=== PATIENT | female | born 1955 | race Caucasian/White ===

== ENCOUNTER → 2023-03-13 08:07 | Outpatient (BNVA) | payer MEDICARE, SELFPAY | PROVIDERS: Referring Provider Nurse Practitioner Family; Visit Provider Specialist | DX: G25.0 Essential tremor (principal); R26.89 Other abnormalities of gait and mobility; E11.9 Type 2 diabetes mellitus without complications; Z79.4 Long term (current) use of insulin | CPT/HCPCS: 99203 ==

== ENCOUNTER → 2023-10-11 09:05 | Outpatient (BNVA) | payer MEDICARE, SELFPAY | PROVIDERS: Visit Provider Podiatrist Foot & Ankle Surgery | DX: L60.3 Nail dystrophy (principal); G62.9 Polyneuropathy, unspecified; L60.0 Ingrowing nail; E11.42 Type 2 diabetes mellitus with diabetic polyneuropathy; Z79.4 Long term (current) use of insulin | CPT/HCPCS: 11721; 99203 ==

== ENCOUNTER → 2023-12-13 11:39 | Outpatient (BNVA) | payer MEDICARE, SELFPAY | PROVIDERS: Visit Provider Podiatrist Foot & Ankle Surgery | DX: L60.3 Nail dystrophy (principal); G62.9 Polyneuropathy, unspecified; L60.0 Ingrowing nail; E11.42 Type 2 diabetes mellitus with diabetic polyneuropathy; Z79.4 Long term (current) use of insulin | CPT/HCPCS: 11721 ==

== ENCOUNTER → 2024-02-27 14:00 | Outpatient (BNVA) | payer MEDICARE, SELFPAY | PROVIDERS: Visit Provider Specialist | DX: G25.0 Essential tremor; R26.9 Unspecified abnormalities of gait and mobility; R03.0 Elevated blood-pressure reading, without diagnosis of hypertension | CPT/HCPCS: 99214 ==

== ENCOUNTER 2024-04-26 06:00 | Outpatient (CLI) | payer MEDICARE, SELFPAY ==
--- NOTE | 2024-04-26 | XR_ITS ---
WS: [id number] XR wrist RT min 3V* [id number] REASON FOR EXAM: PAIN OF RIGHT WRIST FINDINGS: Nondisplaced oblique fracture through the base of the radial styloid. Joint spaces of the wrist are intact and relatively well preserved. No soft tissue abnormality. XR/XR wrist RT min 3V* [id number] IMPRESSION: Fracture distal radius as above.
== END 2024-04-26 06:01 | disposition home or self-care (01) ==
LOC: RADOUTREAD 05-05 06:27
PROVIDERS: PCP Nurse Practitioner Family; Visit Provider Nurse Practitioner Family
DX: M25.531 Pain in right wrist (principal)

== ENCOUNTER → 2025-02-24 13:44 | Outpatient (BNVA) | payer MEDICARE, SELFPAY | PROVIDERS: PCP Nurse Practitioner Family; Visit Provider Specialist | DX: G25.0 Essential tremor (principal); R26.9 Unspecified abnormalities of gait and mobility; R03.0 Elevated blood-pressure reading, without diagnosis of hypertension; E11.9 Type 2 diabetes mellitus without complications | CPT/HCPCS: 99213 ==

== ENCOUNTER → 2025-03-05 11:55 | Outpatient (BNVA) | payer MEDICARE, SELFPAY | PROVIDERS: PCP Nurse Practitioner Family; Referring Provider Specialist; Visit Provider Internal Medicine | DX: E11.9 Type 2 diabetes mellitus without complications (principal); E78.2 Mixed hyperlipidemia; Z79.4 Long term (current) use of insulin | CPT/HCPCS: 99204 ==

== ENCOUNTER 2025-04-16 11:21 | Outpatient (CLI) | payer MEDICARE, SELFPAY ==
--- NOTE | 2025-04-16 11:20 | MM_ITS ---
WS: [id number] BILATERAL SCREENING DIGITAL TOMOSYNTHESIS MAMMOGRAM WITH CAD HISTORY: SCREENING COMPARISON: 03/11/2024, 06/25/2007 Bilateral CC and MLO views with tomosynthesis and synthetic mammography submitted. Computer aided detection analyzed. Breast composition: There are scattered areas of fibroglandular density. No suspicious masses, microcalcifications or architectural distortion. Rodlike calcifications in each breast have slowly progressed over time. Benign calcifications. MM/MM scr tomosynthesis [id number] IMPRESSION: BI-RADS: 2 - Benign. FOLLOW UP: 1 Year Follow-up
== END 2025-04-16 11:22 | disposition home or self-care (01) ==
LOC: MOBLMAM 11:24
PROVIDERS: PCP Internal Medicine; Visit Provider Internal Medicine
DX: Z12.31 Encounter for screening mammogram for malignant neoplasm of breast (principal); R92.323 Mammographic fibroglandular density, bilateral breasts; R92.1 Mammographic calcification found on diagnostic imaging of breast
CPT/HCPCS: 77063; 77067

== ENCOUNTER 2025-04-16 21:56 | Emergency (ER) | payer MEDICARE, SELFPAY ==
--- OUTSIDE RECORDS SUMMARY | 2025-04-02 08:45 | XMS_ITS ---
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 Name Role Phone Aburto, [facility] Primary Care Provider Juan Robbins Allergies Allergen (clinical drug ingredient) Drug/Non Drug Allergy documented on EMR Reaction Allergy Type Onset Date Status olmesartan Benicar cough Drug Allergy Active citalopram CeleXA Unknown Drug Allergy Active loratadine Loratadine sleep paralysis Drug Allergy Active tetracycline Tetracycline HCl rash Drug Allergy Active insulin isophane NovoLIN N FlexPen rash Drug Allergy Active glipizide Glipizide Unknown Drug Allergy Active metoprolol Metoprolol Unknown Drug Allergy Activ e trazodone Trazodone Unknown Drug Allergy Active REASON FOR VISIT ccm Medications Medication SIG (Take, Route, Frequency, Duration) Notes Start Date End Date Status Lidocaine 5 % Patch 1 patch remove after 12 hours Externally Once a day; Duration: 30 days 09/10/2024 Not-Taking Ventolin HFA 108 (90 Base) MCG/ACT Aerosol Solution 2 puff as needed Inhalation every 4 hrs; Duration: 30 days Not-Taking Pseudoephedrine HCl ER 120 MG Tablet Extended Release 12 Hour 1 tablet as needed Orally every 12 hrs; Duration: 10 days 09/23/2024 Not-Taking Fluticasone-Salmeterol 500-50 MCG/ACT Aerosol Powder Breath Activated 1 puff Inhalation Twice a day; Duration: 30 days 09/23/2024 Not-Taking Oxymetazoline HCl 0.05 % Solution 4 sprays (2 sprays in each nostril) Nasally Twice a day Not-Taking Triamcinolone Acetonide 0.1 % Cream 1 application Externally Two times a Week Not-Taking Gas Relief 80 MG Tablet Chewable 1 tablet after meals and at bedtime as needed Orally Four times a day Not-Taking Stool Softener 100 MG Tablet 1 tablet as needed Orally Once a day Not-Taking Ibuprofen 800 MG Tablet 1 tab Orally Thr ee times a day prn inflammatory pain; Duration: 30 days Not-Taking Hair Skin & Nails - Tablet as directed Orally Not-Takin g Lantus SoloStar 100 UNIT/ML Solution Pen-injector inject 20 units UNDER THE SKIN TWICE DAILY; Duration: 30 Not-Taking metFORMIN HCl ER 750 mg Tablet Extended Release 24 Hour TAKE ONE TABLET BY MOUTH EVERY EVENING with a meal; Duration: 30 Not-Taking prednisoLONE Acetate 1 % Suspension 1 drop into affected eye Ophthalmic Twice a day Not-Taking Ketorolac Tromethamine 0.5 % Solution 1 drop into affected eye as needed Ophthalmic Four times a day Not-Taking Atorvastatin Calcium 20 mg Tablet TAKE ONE TABLET BY MOUTH EVERY DAY; Duration: 90 Not-Taking GNP Nasal Decongestant 120 mg Tablet Extended Release 12 Hour TAKE ONE TABLET BY MOUTH EVERY TWELVE HOURS NEEDED FOR 10 DAYS; Duration: 10 Not-Taking One A Day Women 50 Plus - Tablet as directed Orally Active Acetaminophen 500 MG Tablet 1 tablet as needed Orally every 6 hrs Active Chlorzoxazone 500 mg Tablet TAKE ONE TABLET BY MOUTH THREE TIMES DAILY NEEDED FOR moderate SPASMS FOR 30 DAYS; Duration: 30 Active Fexofenadine HCl 180 MG Tablet 1 tablet Swallow whole with water; do not take with fruit juices. Orally Once a day Active FreeStyle Joni 14 Day [place] - Device as directed; Duration: 30 days 04/16/2024 Active Alkalol - Solution as directed Nasally Active Magnesium 200 MG Tablet 2 tablets with a meal Orally Once a day Active Cyanocobalamin 500 MCG Lozenge 1 lozenge Orally Once a day Active Cholecalciferol 50 MCG (2000 UT) Capsule 1 capsule Orally Once a day Active Fluticasone Propionate 50 MCG/ACT Suspension instill TWO SPRAY IN EACH NOSTRIL TWICE DAILY; Duration: 30 Active True Metrix Blood Glucose Test - Strip USE ONE strip TO test blood sugar TWICE DAILY; Duration: 90 Active Nystop 218523 UNIT/GM Powder APPLY topically TWICE DAILY; Duration: 30 Active Azelastine HCl - Powder as directed Active Diclofenac Sodium 1 % Gel as directed Externally Four times a day; Duration: 30 days Active FreeStyle Joni 14 Day Sensor - Miscellaneous as directed; Duration: 30 days Active Brimonidine Tartrate-Timolol 0.2-0.5 % Solution Ophthalmic; Duration: 30 Days Active Pantoprazole Sodium 40 mg Tablet Delayed Release TAKE ONE TABLET BY MOUTH EVERY DAY; Duration: 90 Active Primidone 50 MG Tablet 2 tabs Oral Once a day; Duration: 30 days Active TRUEplus Lancets 30G - Miscellaneous USE DIRECTED FOUR TIMES DAILY NEEDED; Duration: 30 Active Vilazodone HCl 40 mg Tablet TAKE ONE TABLET BY MOUTH ONCE DAILY with food; Duration: 30 Active Advocate Insulin Pen [place] 31G X 5 MM Miscellaneous USE with lantus DIRECTED; Duration: 50 Active Montelukast Sodium 10 mg Tablet TAKE ONE TABLET BY MOUTH EVERY DAY; Duration: 90 Active Losartan Potassium 100 mg Tablet TAKE ONE TABLET BY MOUTH EVERY MORNING; Duration: 30 Active Mounjaro 15 MG/0.5ML Solution Auto-injector INJECT 15 MG UNDER THE SKIN ONCE WEEKLY FOR diabetes; Duration: 30 Active Celecoxib 200 MG Capsule 1 cap Orally On ce a day pc; Duration: 30 days 01/06/2025 07/04/2025 Active busPIRone HCl 10 mg Tablet TAKE one half TO one TABLET BY MOUTH TWICE DAILY NEEDED FOR moderate ANXIETY; Duration: 30 days Active Budesonide (Nasal) A ctive Insulin Glargine-yfgn 100 UNIT/ML Solution Pen-injector inject 20 units UNDER THE SKIN TWICE DAILY Subcutaneous; Duration: 37 Days Active amLODIPine Besylate 5 MG Tablet 1 tablet Orally Once a day in evening; Duration: 30 days 01/01/2025 Not-Taking Cyclobenzaprine HCl 10 mg Tablet TAKE 1 TABLET BY MOUTH THREE TIMES DAILY NEEDED FOR muscle spasm; Duration: 30 Active Pepcid 40 MG Tablet 1 tablet Orally Once a day; Duration: 30 days 02/16/2025 Active traMADol HCl 50 mg Tablet TAKE 1 TABLET BY MOUTH EVERY 4 hours NEEDED FOR SEVERE pain FOR 30 days; Duration: 30 03/09/2025 Active Social History Tobacco Use: Social History Observation Description Date Details (start date - stop date) Never Smoker NA - NA Social History Tobacco Use: Social Info Question Answer Notes Tobacco Control (Standard) Tobacco use: Nonsmoker Section Notes: Depression screen completed 05/14/2024 Tob - 05/14/24 Encounters Encounter Location Date Provider Diagnosis [facility] 04/02/2025 Juan oRbbins Hypertension I10 and Anxiety F41.9 Assessments Encounter Date Diagnosis (ICD Code) Assessment Notes Treatment Notes Treatment Clinical Notes Section Notes 04/02/2025 Hypertension (ICD-10 - I10) 04/02/2025 Anxiety (ICD-10 - F41.9) Plan Of Treatment Next Appt Details Provider Name:Mary Alice Aburto, 05/21/2025 01:00:00 PM, [address], [facility], [place], [phone], Progress Notes * Laverne AMBROSE KDOB: (69 yo F)Acc No.[id number]:04/02/2025 Patient: Laverne RIVERA :1955 A ge:69 Y S ex:Female Address:[address] [place] [id number] Subjective: * Chief Complaints: * C cm * ROS: G eneral - Multi System: Cardiovascular R EPORTS, swelling in lower extremities. * Medical History: Used insulin since 2011 type II diabetes Chicken Pox Measles Alopecia Anemia Anxiety Depression Chronic sinusitis Back Trouble GERD High Blood Pressure Alopecia totalis * Surgical History: tubal ligation 1989 cholecystectomy 2017 fractured wrist repair left 2003 fractured left wrist repair 2005 sinus 2000 * Hospitalization/Major Diagno stic Procedure: bells palsy 2018 see surgery hx * Family History: F ather: 85 yrs, type II diabetes, hypertension. M other: alive 86 yrs, sinus.? * Social History: T obacco Use: T obacco Control (Standard) T obacco use: N onsmoker D epression screen completed 05/14/2024 Tob - 05/14/24. * Medications: T akingtraMADol HCl 50 mg Tablet TAKE 1 TABLET BY MOUTH EVERY 4 hours NEEDED FOR SEVERE pain FOR 30 days Cyclobenzaprine HCl 10 mg Tablet TAKE 1 TABLET BY MOUTH THREE TIMES DAILY NEEDED FOR muscle spasm Pepcid 40 MG Tablet 1 tablet Orally Once a day Celecoxib 200 MG Capsule 1 cap Orally Once a day pc , stop date 5busPIRone HCl 10 mg Tablet TAKE one half TO one TABLET BY MOUTH TWICE DAILY NEEDED FOR moderate ANXIETY Budesonide (Nasal) Insulin Glargine-yfgn 100 UNIT/ML Solution Pen-injector inject 20 units UNDER THE SKIN TWICE DAILY Subcutaneous Advocate Insulin Pen [place] 31G X 5 MM Miscellaneous USE with lantus DIRECTED Montelukast Sodium 10 mg Tablet TAKE ONE TABLET BY MOUTH EVERY DAY Losartan Potassium 100 mg Tablet TAKE ONE TABLET BY MOUTH EVERY MORNING Mounjaro 15 MG/0.5ML Solution Auto-injector INJECT 15 MG UNDER THE SKIN ONCE WEEKLY FOR diabetes Vilazodone HCl 40 mg Tablet TAKE ONE TABLET BY MOUTH ONCE DAILY with food FreeStyle Joni 14 Day Sensor - Miscellaneous as directed Brimonidine Tartrate-Timolol 0.2-0.5 % Solution Ophthalmic Pantoprazole Sodium 40 mg Tablet Delayed Release TAKE ONE TABLET BY MOUTH EVERY DAY Primidone 50 MG Tablet 2 tabs Oral Once a day TRUEplus Lancets 30G - Miscellaneous USE DIRECTED FOUR TIMES DAILY NEEDED True Metrix Blood Glucose Test - Strip USE ONE strip TO test blood sugar TWICE DAILY Nystop 438482 UNIT/GM Powder APPLY topically TWICE DAILY Azelastine HCl - Powder as directed Diclofenac Sodium 1 % Gel as directed Externally Four times a day Fluticasone Propionate 50 MCG/ACT Suspension instill TWO SPRAY IN EACH NOSTRIL TWICE DAILY FreeStyle Joni 14 Day [place] - Device as directed Alkalol - Solution as directed Nasally Magnesium 200 MG Tablet 2 tablets with a meal Orally Once a day Cyanocobalamin 500 MCG Lozenge 1 lozenge Orally Once a day Cholecalciferol 50 MCG (2000 UT) Capsule 1 capsule Orally Once a day One A Day Women 50 Plus - Tablet as directed Orally Acetaminophen 500 MG Tablet 1 tablet as needed Orally every 6 hrs Chlorzoxazone 500 mg Tablet TAKE ONE TABLET BY MOUTH THREE TIMES DAILY NEEDED FOR moderate SPASMS FOR 30 DAYS Fexofenadine HCl 180 MG Tablet 1 tablet Swallow whole with water; do not take with fruit juices. Orally Once a day Taking traMADol HCl 50 mg Tablet TAKE 1 TABLET BY MOUTH EVERY 4 hours NEEDED FOR SEVERE pain FOR 30 days Taking Cyclobenzaprine HCl 10 mg Tablet TAKE 1 TABLET BY MOUTH THREE TIMES DAILY NEEDED FOR muscle spasm Taking Pepcid 40 MG Tablet 1 tablet Orally Once a day Taking Celecoxib 200 MG Capsule 1 cap Orally Once a day pc , stop date 11/08/2025Taking busPIRone HCl 10 mg Tablet TAKE one half TO one TABLET BY MOUTH TWICE DAILY NEEDED FOR moderate ANXIETY Taking Budesonide (Nasal) Taking Insulin Glargine-yfgn 100 UNIT/ML Solution Pen-injector inject 20 units UNDER THE SKIN TWICE DAILY Subcutaneous Taking Advocate Insulin Pen [place] 31G X 5 MM Miscellaneous USE with lantus DIRECTED Taking Montelukast Sodium 10 mg Tablet TAKE ONE TABLET BY MOUTH EVERY DAY Taking Losartan Potassium 100 mg Tablet TAKE ONE TABLET BY MOUTH EVERY MORNING Taking Mounjaro 15 MG/0.5ML Solution Auto-injector INJECT 15 MG UNDER THE SKIN ONCE WEEKLY FOR diabetes Taking Vilazodone HCl 40 mg Tablet TAKE ONE TABLET BY MOUTH ONCE DAILY with food Taking FreeStyle Joni 14 Day Sensor - Miscellaneous as directed Taking Brimonidine Tartrate-Timolol 0.2-0.5 % Solution Ophthalmic Taking Pantoprazole Sodium 40 mg Tablet Delayed Release TAKE ONE TABLET BY MOUTH EVERY DAY Taking Primidone 50 MG Tablet 2 tabs Oral Once a day Taking TRUEplus Lancets 30G - Miscellaneous USE DIRECTED FOUR TIMES DAILY NEEDED Taking True Metrix Blood Glucose Test - Strip USE ONE strip TO test blood sugar TWICE DAILY Taking Nystop 284756 UNIT/GM Powder APPLY topically TWICE DAILY Taking Azelastine HCl - Powder as directed Taking Diclofenac Sodium 1 % Gel as directed Externally Four times a day Taking Fluticasone Propionate 50 MCG/ACT Suspension instill TWO SPRAY IN EACH NOSTRIL TWICE DAILY Taking FreeStyle Joni 14 Day [place] - Device as directed Taking Alkalol - Solution as directed Nasally Taking Magnesium 200 MG Tablet 2 tablets with a meal Orally Once a day Taking Cyanocobalamin 500 MCG Lozenge 1 lozenge Orally Once a day Taking Cholecalciferol 50 MCG (2000 UT) Capsule 1 capsule Orally Once a day Taking One A Day Women 50 Plus - Tablet as directed Orally Taking Acetaminophen 500 MG Tablet 1 tablet as needed Orally every 6 hrs Taking Chlorzoxazone 500 mg Tablet TAKE ONE TABLET BY MOUTH THREE TIMES DAILY NEEDED FOR moderate SPASMS FOR 30 DAYS Taking Fexofenadine HCl 180 MG Tablet 1 tablet Swallow whole with water; do not take with fruit juices. Orally Once a day Not-TakingamLODIPine Besylate 5 MG Tablet 1 tablet Orally Once a day in evening GNP Nasal Decongestant 120 mg Tablet Extended Release 12 Hour TAKE ONE TABLET BY MOUTH EVERY TWELVE HOURS NEEDED FOR 10 DAYS Lantus SoloStar 100 UNIT/ML Solution Pen-injector inject 20 units UNDER THE SKIN TWICE DAILY metFORMIN HCl ER 750 mg Tablet Extended Release 24 Hour TAKE ONE TABLET BY MOUTH EVERY EVENING with a meal prednisoLONE Acetate 1 % Suspension 1 drop into affected eye Ophthalmic Twice a day Ketorolac Tromethamine 0.5 % Solution 1 drop into affected eye as needed Ophthalmic Four times a day Atorvastatin Calcium 20 mg Tablet TAKE ONE TABLET BY MOUTH EVERY DAY Ibuprofen 800 MG Tablet 1 tab Orally Three times a day prn inflammatory pain Hair Skin & Nails - Tablet as directed Orally Triamcinolone Acetonide 0.1 % Cream 1 application Externally Two times a Week Gas Relief 80 MG Tablet Chewable 1 tablet after meals and at bedtime as needed Orally Four times a day Stool Softener 100 MG Tablet 1 tablet as needed Orally Once a day Lidocaine 5 % Patch 1 patch remove after 12 hours Externally Once a day Ventolin HFA 108 (90 Base) MCG/ACT Aerosol Solution 2 puff as needed Inhalation every 4 hrs Pseudoephedrine HCl ER 120 MG Tablet Extended Release 12 Hour 1 tablet as needed Orally every 12 hrs Fluticasone-Salmeterol 500-50 MCG/ACT Aerosol Powder Breath Activated 1 puff Inhalation Twice a day Oxymetazoline HCl 0.05 % Solution 4 sprays (2 sprays in each nostril) Nasally Twice a day Not-Taking amLODIPine Besylate 5 MG Tablet 1 tablet Orally Once a day in evening Not-Taking GNP Nasal Decongestant 120 mg Tablet Extended Release 12 Hour TAKE ONE TABLET BY MOUTH EVERY TWELVE HOURS NEEDED FOR 10 DAYS Not-Taking Lantus SoloStar 100 UNIT/ML Solution Pen-injector inject 20 units UNDER THE SKIN TWICE DAILY Not-Taking metFORMIN HCl ER 750 mg Tablet Extended Release 24 Hour TAKE ONE TABLET BY MOUTH EVERY EVENING with a meal Not-Taking prednisoLONE Acetate 1 % Suspension 1 drop into affected eye Ophthalmic Twice a day Not-Taking Ketorolac Tromethamine 0.5 % Solution 1 drop into affected eye as needed Ophthalmic Four times a day Not- Taking Atorvastatin Calcium 20 mg Tablet TAKE ONE TABLET BY MOUTH EVERY DAY Not-Taking Ibuprofen 800 MG Tablet 1 tab Orally Three times a day prn inflammatory pain Not-Taking Hair Skin & Nails - Tablet as directed Orally Not-Taking Triamcinolone Acetonide 0.1 % Cream 1 application Externally Two times a Week Not-Taking Gas Relief 80 MG Tablet Chewable 1 tablet after meals and at bedtime as needed Orally Four times a day Not-Taking Stool Softener 100 MG Tablet 1 tablet as needed Orally Once a day Not-Taking Lidocaine 5 % Patch 1 patch remove after 12 hours Externally Once a day Not-Taking Ventolin HFA 108 (90 Base) MCG/ACT Aerosol Solution 2 puff as needed Inhalation every 4 hrs Not-Taking Pseudoephedrine HCl ER 120 MG Tablet Extended Release 12 Hour 1 tablet as needed Orally every 12 hrs Not-Taking Fluticasone-Salmeterol 500-50 MCG/ACT Aerosol Powder Breath Activated 1 puff Inhalation Twice a day Not-Taking Oxymetazoline HCl 0.05 % Solution 4 sprays (2 sprays in each nostril) Nasally Twice a day * Allergies: N ovoLIN N FlexPen: rash - AllergyTetracycline HCl: rash - AllergyLoratadine: sleep paralysis - AllergyTrazodoneBenicar: coughMetoprololCeleXAGlipizide Assessment: * Assessment: 1. H ypertension - I10 (Primary) 2 . A nxiety - F41.9 * * Date:
--- OUTSIDE RECORDS SUMMARY | 2025-04-09 11:00 | XMS_ITS ---
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 Phone Aburto, [facility] Primary Care Provider [phone] Allergies Allergen (clinical drug ingredient) Drug/Non Drug [...] e trazodone Trazodone Unknown Drug Allergy Active Results Component Value Reference Range Notes UA Without Micro-Auto, [place] - [id number] Reviewed date:04/10/2025 04:22:20 PM Interpretation: Performing Lab: Notes/Report: Color straw Clarity cloudy Glucose neg Bili 1+ Ketones neg Sp [place] Path 1.020 Blood neg pH 6.0 Protein neg Urobili 0.2 Nitrites positive Leukocytes +15 Reason For Referral Reason depression Diagnosis 1 Other depression (F3 2.89) Referral Organization [facility] [place] [facility] Referring Provider First Name Mary Alice Referring Provider Last Name Aburto Referring Provider Speciality Nurse Jannie whiting Referred Provider [facility] Referred Provider Specialty [facility] Referral Priority Routine REASON FOR VISIT Patient to clinic for 3 mo f/u Medications Medication SIG (Take, Route, Frequency, Duration) Notes Start Date End Date Status Lidocaine 5 % Patch 1 patch remove after 12 hours Externally Once a day; Duration: 30 days 09/10/2024 Not-Taking Oxymetazoline HCl 0.05 % Solution 4 sprays (2 sprays in each nostril) Nasally Twice a day Not-Taking Fluticasone-Salmeterol 500-50 MCG/ACT Aerosol Powder Breath Activated 1 puff Inhalation Twice a day; Duration: 30 days 09/23/2024 Not-Taking Pseudoephedrine HCl ER 120 MG Tablet Extended Release 12 Hour 1 tablet as needed Orally every 12 hrs; Duration: 10 days 09/23/2024 Not-Taking Ventolin HFA 108 (90 Base) MCG/ACT Aerosol Solution 2 puff as needed Inhalation every 4 hrs; Duration: 30 days Not-Taking Stool Softener 100 MG Tablet 1 tablet as needed Orally Once a day Not-Taking Gas Relief 80 MG Tablet Chewable 1 tablet after meals and at bedtime as needed Orally Four times a day Not-Taking Triamcinolone Acetonide 0.1 % Cream 1 application Externally Two times a Week Not-Taking Hair Skin & Nails - Tablet as directed Orally Not-Taking Ibuprofen 800 MG Tablet 1 tab Orally Thr ee times a day prn inflammatory pain; Duration: 30 days Not-Taking Atorvastatin Calcium 20 mg Tablet TAKE ONE TABLET BY MOUTH EVERY DAY; Duration: 90 Not-Taking Ketorolac Tromethamine 0.5 % Solution 1 drop into affected eye as needed Ophthalmic Four times a day Not-Taking prednisoLONE Acetate 1 % Suspension 1 drop into affected eye Ophthalmic Twice a day Not-Taking metFORMIN HCl ER 750 mg Tablet Extended Release 24 Hour TAKE ONE TABLET BY MOUTH EVERY EVENING with a meal; Duration: 30 Not-Taking Lantus SoloStar 100 UNIT/ML Solution Pen-injector inject 20 units UNDER THE SKIN TWICE DAILY; Duration: 30 Not-Taking GNP Nasal Decongestant 120 mg Tablet Extended Release 12 Hour TAKE ONE TABLET BY MOUTH EVERY TWELVE HOURS NEEDED FOR 10 DAYS; Duration: 10 Not-Taking amLODIPine Besylate 5 MG Tablet 1 tablet Orally Once a day in evening; Duration: 30 days 01/01/2025 Not-Taking Insulin Glargine-yfgn 100 UNIT/ML Solution Pen-injector inject 20 units UNDER THE SKIN TWICE DAILY Subcutaneous; Duration: 37 Days Active Budesonide (Nasal) A ctive FreeStyle Joni 14 Day Sensor - Miscellaneous as directed; Duration: 30 days Active hydroCHLOROthiazide 25 MG Tablet 1 tablet in the morning Orally Once a day; Duration: 30 days 04/09/2025 10/06/2025 Active Celecoxib 200 MG Capsule 1 cap Orally On ce a day pc; Duration: 30 days 01/06/2025 07/04/2025 Active Pepcid 40 MG Tablet 1 tablet Orally Once a day; Duration: 30 days 02/16/2025 Active Cyclobenzaprine HCl 10 mg Tablet TAKE 1 TABLET BY MOUTH THREE TIMES DAILY NEEDED FOR muscle spasm; Duration: 30 Active traMADol HCl 50 mg Tablet TAKE 1 TABLET BY MOUTH EVERY 4 hours NEEDED FOR SEVERE pain FOR 30 days; Duration: 30 03/09/2025 Active Acetaminophen 500 MG Tablet 1 tablet as needed Orally every 6 hrs Active One A Day Women 50 Plus - Tablet as directed Orally Active Cholecalciferol 50 MCG (2000 UT) Capsule 1 capsule Orally Once a day Active Fexofenadine HCl 180 MG Tablet 1 tablet Swallow whole with water; do not take with fruit juices. Orally Once a day Active Chlorzoxazone 500 mg Tablet TAKE ONE TAB LET BY MOUTH THREE TIMES DAILY NEEDED FOR moderate SPASMS FOR 30 DAYS; Duration: 30 Active Cyanocobalamin 500 MCG Lozenge 1 lozenge Orally Once a day Active Magnesium 200 MG Tablet 2 tablets with a meal Orally Once a day Active Alkalol - Solution as directed Nasally Active FreeStyle Joni 14 Day Skykomish - Device as directed; Duration: 30 days 04/16/2024 Active Fluticasone Propionate 50 MCG/ACT Suspension instill TWO SPRAY IN EACH NOSTRIL TWICE DAILY; Duration: 30 Active True Metrix Blood Glucose Test - Strip USE ONE strip TO test blood sugar TWICE DAILY; Duration: 90 Active TRUEplus Lancets 30G - Miscellaneous USE DIRECTED FOUR TIMES DAILY NEEDED; Duration: 30 Active Diclofenac Sodium 1 % Gel as directed Externally Four times a day; Duration: 30 days Active Azelastine HCl - Powder as directed Active Nystop 021919 UNIT/GM Powder APPLY topically TWICE DAILY; Duration: 30 Active Primidone 50 MG Tablet 2 tabs Oral Once a day; Duration: 30 days Active Pantoprazole Sodium 40 mg Tablet Delayed Release TAKE ONE TABLET BY MOUTH EVERY DAY; Duration: 90 Active Brimonidine Tartrate-Timolol 0.2-0.5 % Solution Ophthalmic; Duration: 30 Days Active Vilazodone HCl 40 mg Tablet TAKE ONE TAB LET BY MOUTH ONCE DAILY with food; Duration: 30 Active Mounjaro 15 MG/0.5ML Solution Auto-injector INJECT 15 MG UNDER THE SKIN ONCE WEEKLY FOR diabetes; Duration: 30 Active Cipro 500 MG Tablet 1 tablet Orally every 12 hrs; Duration: 5 days 04/09/2025 04/14/2025 Active busPIRone HCl 10 mg Tablet 1 1/2 tab ora lly twice a day prn anxiety; Duration: 30 days 07/08/2025 Active Losartan Potassium 100 mg Tablet TAKE ONE TABLET BY MOUTH EVERY MORNING; Duration: 30 Active Montelukast Sodium 10 mg Tablet TAKE ONE TABLET BY MOUTH EVERY DAY; Duration: 90 Active Advocate Insulin Pen [place] 31G X 5 MM Miscellaneous USE with lantus DIRECTED; Duration: 50 Active Social History Tobacco Use: Social History Observation Description Date Details (start date - stop date) Never Smoker NA - NA Social History Depression Screening Social Info Question Answer Notes depression screening findings Findings Suicidality Present PHQ-9 Little interest or p jillian in doing things Several days Feeling down, depressed, or hopeless More than h [facility] the days Trouble falling or staying a sleep, or sleeping too much More than half the days Feeling tired or having little energy Nearly cecy ry day Poor appetite or overeating Nearly every day Feeling bad about yourself, or that you are a failure, or have let yourself or your family down More than half the days Trouble concentrating on thi ngs, such as reading the newspaper or watching television More than half the days Moving or speaking so slowly that other people could have noticed. Or the opposite ? being so fidgety or restless that you have been moving around a lot more than usual Several days Thoughts that you would be b ana off , or of hurting yourself in some way Several days (Consider Suicide Assessment Risk) Total Score 17 Interpretation Moderately severe depression Tobacco Use: Social Info Question Answer Notes Tobacco Control (Standard) Tobacco use: Nonsmoker Section Notes: Depression screen completed 05/14/2024 Tob - 05/14/24, PHQ9 04/10/2025 Vital Signs Temperature 97.3 degrees Fahrenheit 04/09/20 25 Blood pressure systolic 139 mm Hg 04/09/20 25 Blood pressure diastolic 75 mm Hg 025 Heart Rate 103 /min 04/09/2025 Respiratory Rate 20 /min 04/09/2025 Height 64.5 in 04/09/2025 Weight 189 lbs 04/09/2025 BMI 31.94 kg/m2 04/09/2025 Oximetry 99 % 04/09/2025 Height-cm 163.83 cm 04/09/2025 Weight-kg 85.73 kg 04/09/2025 Encounters Encounter Location Date Provider Diagnosis [facility] [address] [id number] 04/09/2025 [facility] Aburto Essential (primary) hypertension I10 ; Type 2 diabetes mellitus with diabetic neuropathic arthropathy E11.610 ; Other depression F32.89 ; Anxiety F41.9 ; 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 Z79.4 ; Thyroid disorder screen Z13.29 ; Dysuria R30.0 and Cystitis N30.90 Assessments Encounter Date Diagnosis (ICD Code) Assessment Notes Treatment Notes Treatment Clinical Notes Section Notes 04/09/2025 Essential (primary) hypertension (ICD-10 - I10) hctz losartan cbc cmp lipids 04/09/2025 Type 2 diabetes mellitus with diabetic neuropathic arthropathy (ICD-10 - E11.610) insulin mounjaro 04/09/2025 Other depression (ICD-10 - F32.89) continue meds [facility] 04/09/2025 Anxiety (ICD-10 - F41.9) buspar 04/09/2025 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 Plan Of Treatment Medication Medication Name Sig Start Date Stop Date Notes FreeStyle Joni 14 Day Senso r - Miscellaneous as directed; Duration: 30 days hydroCHLOROthiazide 25 MG Tablet 1 table t in the morning Orally Once a day; Duration: 30 days 04/09/2025 10/06/2025 Cipro 500 MG Tablet 1 tablet Orally ever y 12 hrs; Duration: 5 days 04/09/2025 04/14/2025 busPIRone HCl 10 mg Tablet 1 1/2 tab ora lly twice a day prn anxiety; Duration: 30 days 07/08/2025 Treatment Notes Assessment Notes Essential (primary) hypertension hctz losartan cbc cmp lipids Type 2 diabetes mellitus wit h diabetic neuropathic arthropathy insulin mounjaro Other depression continue meds [facility] Anxiety buspar group home (current) use of insulin ha1c Thyroid disorder screen tsh Dysuria ua Cystitis cipro Other Questions asked and answered; discharged to home. Future Test Test Name Order Date CBC w\ Auto Diff 19174 04/09/2025 Comprehensive Metabolic Panel (CMP) 8005 3 04/09/2025 Hemoglobin A1c 04348 04/09/2025 Lipid Panel Reflex DLDL 35040, 50961 Thyroid Stimulating Hormone (TSH) 61840 04/09/2025 Referrals Referral Date Details 04/09/2025 04/09/2025, depressi on, [facility] Next Appt Details Follow Up: 4 Weeks, Reason: recheck and lab Provider Name:Mary Alice Aburto, 05/21/2025 01:00:00 PM, [address], [address], History and Physical Notes * Examination Category Sub-Category Detail Notes Category Not es General Examination GENERAL APPEARANCE: alert, w ell hydrated, in no distress, converses well HEAD: normocephalic, atrau matic EYES: PERRL; normal conjun ctiva EARS: ... NECK/THYROID: neck supple, full ra nge of motion, no JVD, without thyromegaly or masses HEART: Regular rate and rhy thm, S1 S2 normal LUNGS: clear to auscultatio n bilaterally, no wheezes, rales, or rhonchi NEUROLOGIC: alert and oriented, cerebellar function normal, cognitive exam grossly normal, gait normal SKIN: warm and dry EXTREMITIES: no clubbing, cyanosi s, or edema. 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 Subjective: * Chief Complaints: * P atient to clinic for 3 mo f/u * HPI: P rovider Note: patient is an alert 69 year old female known to practice and here for recheck and medications discussed with patient diagnoses treatments and medications pepcid for gerd/gas; continue plan take with celebrex freestyle joni 3 refill [facility] states her bp has been up some at home will add hctz q am continue losartan monitor bp complains depression; anxiety states out of buspar x 3 days was taking buspar 2 tabs twice a day; out of 3 days ok to increase to 1 1/2 tabs bid; refills continue vilazodone daily depression total score of 17 this visit discussed with patient refer to [facility] saw dr bhagat for diabetes next appt may dr bhagat; need fasting labs here did have some lows in the night insulin changed there to once a day taking insulin 20 units bid best to take only q a day discussed with patient try 28 units in evening; stop am injections as suggested by dr bhagat at her last visit continue mounjaro 15 mg glaucoma pressure 30 diabetes type 2 with [facility] insulin neuropathy sees dr christiansen for eyes; glaucoma does eye 2 different eye drops complains possible uti/dysuria ua in clinic positive nitrites; positive leuk cystitis; will e script cipro. * ROS: G eneral - Multi System: Genitourinary R EPORTSdysuria . P sychiatric R eportsdepression . 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 * OB History: T otal living children 2 . T otal pregnancies 2 . * Surgical History: tubal ligation 1989 cholecystectomy 2017 fractured wrist repair left 2003 fractured left wrist repair 2004 sinus 1999 Surgical History verified. * Hospitalization/Major Diagno stic Procedure: bells palsy 2018 see surgery hx Hospitalization Verified. * Family History: F ather: 85 yrs, type II diabetes, hypertension. M other: alive 86 yrs, sinus.?Family History Verified.. * Social History: T obacco Use: T obacco Control (Standard) T obacco use: N onsmoker D epression Screening: P HQ-9 L ittle interest or pleasure in doing things?Several days F eeling down, depressed, or hopeless M ore than half the days T rouble falling or staying asleep, or sleeping too much M ore than half the days F eeling tired or having little energy N early every day P oor appetite or overeating N early every day F eeling bad about yourself, or that you are a failure, or have let yourself or your family down M ore than half the days T rouble concentrating on things, such as reading the newspaper or watching television M ore than half the days M oving or speaking so slowly that other people could have noticed. Or the opposite ? being so fidgety or restless that you have been moving around a lot more than usual S everal days T houghts that you would be better off , or of hurting yourself in some way S everal days (Consider Suicide Assessment Risk) T otal Score 1 7 I nterpretation M oderately severe depression Depression screening findings F indings S uicidality Present S ocial History Verified. D epression screen completed 05/14/2024 Tob - 05/14/24, PHQ9 04/10/2025. * Medications: T akingAdvocate Insulin Pen [place] 31G X 5 MM Miscellaneous USE with [...] TO test blood sugar TWICE DAILY Nystop 314273 UNIT/GM Powder APPLY topically TWICE DAILY Azelastine HCl - Powder as directed Diclofenac Sodium 1 % Gel as directed Externally Four times a day Fluticasone Propionate 50 MCG/ACT Suspension instill TWO SPRAY IN EACH NOSTRIL TWICE DAILY FreeStyle Joni 14 Day Skykom[place] - Device as directed Alkalol - Solution [...] with fruit juices. Orally Once a day traMADol HCl 50 mg Tablet TAKE 1 TABLET BY MOUTH EVERY 4 hours NEEDED FOR SEVERE pain FOR 30 days Cyclobenzaprine HCl 10 mg Tablet TAKE 1 TABLET BY MOUTH THREE TIMES DAILY NEEDED FOR muscle spasm Pepcid 40 MG Tablet 1 tablet Orally Once a day Celecoxib 200 MG Capsule 1 cap Orally Once a day pc , stop date 07/04/2025usPIRone HCl 10 mg Tablet TAKE one half TO one TABLET BY MOUTH TWICE DAILY NEEDED FOR moderate ANXIETY Budesonide (Nasal) Insulin Glargine-yfgn 100 UNIT/ML Solution Pen-injector inject 20 units UNDER THE SKIN TWICE DAILY Subcutaneous Taking Advocate Insulin Pen [place] 31G X 5 MM Miscellaneous USE with [...] test blood sugar TWICE DAILY Taking Nystop 452315 UNIT/GM Powder APPLY topically TWICE DAILY Taking Azelastine HCl - Powder as directed Taking Diclofenac Sodium 1 % Gel as directed Externally Four times a day Taking Fluticasone Propionate 50 MCG/ACT Suspension instill TWO SPRAY IN EACH NOSTRIL TWICE DAILY Taking FreeStyle Joni 14 Day [place] - Device as directed Taking Alkalol - [...] Once a day pc , stop date 07/04/2025Taking busPIRone HCl 10 mg Tablet TAKE one half TO one TABLET BY MOUTH TWICE DAILY NEEDED FOR moderate ANXIETY Taking Budesonide (Nasal) Taking Insulin Glargine-yfgn 100 UNIT/ML Solution Pen-injector inject 20 units UNDER THE SKIN TWICE DAILY Subcutaneous Not-TakingamLODIPine Besylate 5 MG Tablet 1 tablet [...] rash - AllergyLoratadine: sleep paralysis - AllergyTrazodoneBenicar: coughMetoprololCeleXAGlipizideyesAllergies Verified. Objective: * Vitals: H t: 64.5 in, Wt:189lbs, Wt-k.73 kg, BMI:31.94Index, Temp:97.3F, BP: 145/77 mm Hg,139/75mm Hg, HR:103/min, RR:20/min, Oxygen sat %:99%, O2 Source: RA, Pain scale: 0 1-10, Ht-cm: 163.83 cm. * Examination: G eneral Examination: GENERAL APPEARANCE: a lert, well hydrated, in no distress, converses well. HEAD: n ormocephalic, atraumatic. EYES: P ERRL; normal conjunctiva. EARS: . ... NECK/THYROID: n skip supple, full range of motion, no JVD, without thyromegaly or masses. SKIN: w arm and dry. HEART: R egular rate and rhythm, S1 S2 normal. LUNGS: c lear to auscultation bilaterally, no wheezes, rales, or rhonchi. EXTREMITIES: n o clubbing, cyanosis, or edema.. NEUROLOGIC: a lert and oriented, cerebellar function normal, cognitive exam grossly normal, gait normal. PSYCH: a lert, oriented, cognitive function intact, cooperative with exam, good eye contact, mood/affect full range, speech clear. Assessment: * Assessment: 1. E ssential (primary) hypertension - I10 (Primary) 2 . T ype 2 diabetes mellitus with diabetic neuropathic arthropathy - E11.610 3 . O ther depression - F32.89 4 . A nxiety - F41.9 5 . L kelly term (current) use of insulin - Z79.4 6 . T hyroid disorder screen - Z13.29 7 . D ysuria - R30.0 8 . C ystitis - N30.90 Plan: * Treatment: 2. T ype 2 diabetes mellitus with diabetic neuropathic arthropathy Notes: insulin mounjaro 3. O ther depression Notes: continue meds [facility] Referral To: [facility] Reason:depression 4. A nxiety Refill busPIRone HCl Tablet, 10 mg, 1 1/2 tab, orally, twice a day prn anxiety, 30 days, 90, Stop Date: 07/08/2025, Refills 2. Notes: buspar 5. L kelly term (current) use of insulin Refill FreeStyle Joni 14 Day Sensor Miscellaneous, -, as directed, 30 days, 1, Refills 5. ? L AB: Hemoglobin A1c 09584 (Ordered for 04/09/2025) Notes: ha1c 6. T hyroid disorder screen L AB: Thyroid Stimulating Hormone (TSH) 00680 (Ordered for 04/09/2025) Notes: tsh 7. D ysuria L AB: UA Without Micro-Auto, Machine - [id number] (Collection Date & Time - 04/10/2025) Value Reference Range C olor straw * C larity cloudy * G lucose neg * B bassam 1+ * K etones neg * S p [place] Path 1.020 * B lood neg * p H 6.0 * P rotein neg * U robili 0.2 * N itrites positive * L eukocytes +15 Notes: ua??8.?Cystitis? Start Cipro Tablet, 500 MG, 1 tablet, Orally, every 12 hrs, 5 days, 10 Tablet, Start Date: 04/09/2025, Stop Date: 04/14/2025, Refills 0.?? Notes: cipro??9.?Others? Notes: Questions asked and answered; discharged to home.?? * Procedure Codes: 3 078F DIAST BP < 80 MM [id number] SYST BP GE 130 - 139MM [id number] AMNT PAIN NOTED NONE [id number] URINALYSIS, AUTO, W/O SCOPE, Modifiers: QW * Preventive Medicine: Screenings: B REAST CANCER SCREENING: Date of most recent screenin 03/11/2024 negative C ARE FOR OLDER ADULTS Functional Status N o Impairment for Functional Status Function Status Assessment date 0 04/09/2025 Medication review date 0 04/09/2025 Pain Assessment date 0 04/09/2025 Pain 0/10 C OLORECTAL CANCER SCREENING: Last done Fit-DNA test 1 10/15/2023 negative D IABETIC EYE EXAM Date of last dilated eye exam 1 10/01/2022 Dr. Boyer Findings of Diabetic Eye Exam: n o retinopathy O STEOPOROSIS SCREENING: Date of most recent screenin Osteoporosis screening: w as done a year ago The last DEXA showed: n ormal bone density Counseling: D epression and follow-up Treatment plan includes M onitor, Medications Prescribed, Referral to Psychiatrist Referral was made to [facility] in [place]. Suicidal Risk Assessment performed 0 04/10/2025 * Follow Up: 4 Weeks (Reason: recheck and lab) Billing Information: * Visit Code: 66597 Office Visit, Est Pt., Level 3. * Procedure Codes: 3078F DIAST BP < 80 MM HG. 3075F SYST BP GE 130 - 139MM HG. 1126F AMNT PAIN NOTED NONE PRSNT. 43794 URINALYSIS, AUTO, W/O SCOPE. 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
[2025-04-16 21:59] VITALS: BP 164/84; PULSE 74; RESP 16; TEMP 36.7; O2SAT 100; BMI 30.7
--- OUTSIDE RECORDS SUMMARY | 2025-04-16 22:10 | XMS_ITS | Patient Health Record ---
Author Organization [facility] Address [address] [place] [address] Care Team Providers Care Product Safety Specialist Name Role Phone Aburto, [facility] Primary Care Provider [phone] Juan Robbins Unavailable [phone] Hazel Peng Unavailable [phone] Allergies Allergen (clinical drug ingredient) Drug/Non Drug [...] Allergy Active Results Component Value Reference Range Flag Notes UA Without Micro-[place], [place] - [address] Reviewed date:04/10/2025 04:22:20 PM Interpretation: Performing Lab: Notes/Report: Color straw Clarity cloudy Glucose neg Bili 1+ Ketones neg Sp [place] 1.020 Blood neg pH 6.0 Protein neg Urobili 0.2 Nitrites positive Leukocytes +15 Culture Blood [id number] Reviewed date:07/07/2024 05:01:20 PM Interpretation: Performing Lab: Notes/Report: Culture Blood Patien LAVERNE AMBROSE Culture Blood t: Culture Blood Culture Blood Accessio [id number] Culture Blood n: Culture Blood Microbiology Culture Blood PROCEDURE: Culture Blood [] Culture Blood SOURCE: Blood BODY SITE: Culture Blood COLLECTED DATE/TIME: 06/05/2024 19:16 CDT RECEIVED DATE/TIME: 06/05/2024 22:59 CDT Culture Blood START DATE/TIME: 06/05/2024 23:00 CDT FREE TEXT SOURCE: none listed Culture Blood FINAL REPORT Culture Blood Final Report [] Culture Blood Verified Date/Time: 06/10/2024 11:26 CDT Culture Blood No growth at 5 days. CBC w\ Auto Diff [id number] Reviewed date:12/02/2024 02:37:04 PM Interpretation: Performing Lab: Notes/Report: Diagnosis Description: Essential (primary) hypertension WBC 5.7 4.5-11.0 X10'3 RBC 4.69 4.00-5.20 X10'6 Hgb 13.5 12.0-16.0 G/DL Hct 43.4 36.0-46.0 % MCV 92.5 80.0-100.0 FL MCH 28.8 27.0-31.0 PG MCHC 31.1 31.0-37.0 G/DL Platelet 296 150-400 X10'3 RDW-SD 46.7 35.0-49.0 FL RDW-CV 13.7 12.2-15.6 % MPV 10.5 9.2-12.0 FL Neutro Auto% 56.3 40.0-70.0 % Lymph Auto% 31.6 22.0-44.0 % Patrick Auto% 9.1 3.0-7.0 % HI Eos Auto% 1.9 2.0-4.0 % LOW Baso Auto% 0.7 0.0-1.0 % Imm Gran% .4 .0-.4 % Neutro Abs 3.20 .80-7.70 Absolute Neutrophil Count 3200 NA Lymph Abs 1.80 .10-4.10 Patrick Abs .52 .20-1.00 Eos Abs .11 .00-.40 Baso Abs .04 .00-.20 Imm Gran Abs .02 .00-.10 NRBC# .00 .00-.20 X10'3 NRBC% .00 .00-.20 /100 intact WBC's Comprehensive Metabolic Pane l (CMP) 23248 Reviewed date:12/02/2024 02:37:25 PM Interpretation: Performing Lab: Notes/Report: Diagnosis Description: Essential (primary) hypertension Glucose Serum 120 71-110 MG/DL HI Testing p erformed at [facility], [address] [place] [address] [place] [address]. CLIA ID#: [id number] BUN 19 7-21 MG/DL Creat .80 .51-1.17 MG/DL U-dnvytv-f-benzoquino ne imine (NAPQI) is a metabolite of acetaminophen, NAPQI concentrations of apparoximately 10 mg/L correlation to toxic levels of acetaminophen demonstrates a greater than or equil to 10% change in results. NAPQI concentrations greater than this may lead to falsely depressed results for patient samples. Use of this assay is not recommended for patients undergoing treatment with phenindione, due to the potential for falsely depressed results. GFR 79.5 NA Calculation pe rformed from GFR calculator provided by the [employer]. Glomerular Filtration rate(GRF) is the best overall index of kidney function. Normal GFR varies according to age,sex, body size, and declines with age. The National Kid[employer] Foundation recommends using the CKD-EPI Creatinine Equation(2020) to estimate GFR. BUN/Creat Ratio 23.8 12.0-20.0 % HI Total Protein 7.2 5.8-8.0 G/DL Albumin 4.2 3.2-4.8 G/DL Globulin 3.0 2.3-3.5 G/DL Alb/Glob 1.4 0.8-2.2 Calcium 9.7 8.7-10.4 MG/DL Sodium 142 136-145 MMOL/L Potassium 4.5 3.5-5.1 MMOL/L Chloride 105 98-107 MMOL/L CO2 28.6 20.0-31.0 MMOL/L Anion Gap 13 5-15 Alk Phos 77 46-116 Bili Total .3 .3-1.2 MG/DL Use of this assay is not recommended for patients undergoing treatment with eltrombopag due to the potential for falsely elevated results. AST/SGOT 29 15-37 UNIT/L ALT/SGPT 39 12-78 UNIT/L Osmo Serum,Calculated 297 280-300 MOSM/KG Ehrlichiosis AB IgG & M 8666 6, 12649 Reviewed date:07/07/2024 05:01:26 PM Interpretation: Performing Lab: Notes/Report: E.Chaffeensis IgG AB <1:64 <1:64 NA INTERPRETIVE INFORMATION: Ehrlichia Chaffeensis IgG Ab Less than 1:64 ....... Negative: No significant level of Ehrlichia chaffeensis IgG antibody detected. 1:64-1:128 ........... Equivocal: Questionable presence of Ehrlichia chaffeensis IgG antibody detected. Repeat testing in 10-14 days may be helpful. 1:256 or greater ..... Positive: Presence of IgG antibody to Ehrlichia chaffeensis detected, suggestive of current or past infection. Seroconversion between acute and convalescent sera is considered strong evidence of recent infection. The best evidence for infection is a significant change (fourfold difference in titer) on two appropriately timed specimens, where both tests are done in the same laboratory at the same time. This test was developed and its performance characteristics determined by [facility]. It has not been cleared or approved by the US Food and Drug Administration. This test was performed in a CLIA certified laboratory and is intended for clinical purposes. E.Chaffeensis IgM AB < 1:16 < 1:16 NA INTERPRETIVE INFORMATION: Ehrlichia Chaffeensis IgM Ab Less than 1:16 ....... Negative - No significant level of Ehrlichia chaffeensis IgM antibody detected. 1:16 or greater ...... Positive - Presence of IgM antibody to Ehrlichia chaffeensis detected, suggestive of current or recent infection. While the presence of IgM antibodies suggest current or recent infection, low levels of IgM antibodies may occasionally persist for more than 12 months post-infection. A single IgM result should be interpreted with caution. This test was developed and its performance characteristics determined by [facility]. It has not been cleared or approved by the US Food and Drug Administration. This test was performed in a CLIA certified laboratory and is intended for clinical purposes. Performed By: [facility] [address] [place] [id number] Sap Consultant: Alex Palomino MD, PhD IA Number: [id number] Hemoglobin A1c 39479 Reviewed date:12/02/2024 02:37:37 PM Interpretation: Performing Lab: Notes/Report: Diagnosis Description: Type 2 diabetes mellitus with diabetic neuropathic arthropathy Hgb A1c 6.8 3.8-6.4 % MO Interpretation Of Hgb A1c: 4.5-6.2 % nondiabetics. >7.0 % diabetics. EAG 148 NA Estimated Aver age Glucose(EAG). Lipid Panel Reflex DLDL 8007 5, 30093 Reviewed date:12/02/2024 02:37:58 PM Interpretation: Performing Lab: Notes/Report: Diagnosis Description: Hyperlipidemia, unspecified Trig 111 NA Classification Guidelines:Triglycerid es Adults: >20yrs Desirable <150 Borderline High 150-199 High 200-499 Very high >=500 Children: Male 0-4 yr 22-99 5-9 yr 30-101 10-14 yr 32-125 15-19 yr 37-148 Children: Female 0-4 yr 34-112 5-9 yr 32-105 10-14 yr 37-131 15-19 yr 39-132 Chol 222 <=200 MG/DL HI HDL 64 39-96 MG/DL Reference Ranges:HDL Male: 5-9y 38-75 10-14y 37-74 15-19y 30-63 >=20y 40-59 Female: 5-9y 36-73 10-14y 37-70 15-19y 35-74 >=20y 40-59 CH/HDL 3.5 0.0-4.9 RATIO LDL 135 0-130 MG/DL HI LDL result is inaccurate , if Trig is >400 mg/dl. See DLDL result. [facility] Spotted Fever AB P armani (RMSF) 41418, 08851 Reviewed date:07/07/2024 05:04:38 PM Interpretation: Performing Lab: Notes/Report: [facility] IGG 1:128 <1:64 NA INTERPRETIVE INFORMATION: Rickettsia rickettsii ([facility]. Spotted Fever) Ab, IgG Less than 1:64 ....... Negative - No significant level of IgG antibody detected. 1:64 - 1:128 ......... Low Positive - Presence of IgG Antibody detected, suggestive of current or past infection. 1:256 or greater ..... Positive - Presence of IgG antibody detected, suggestive of current or past infection. Antibody reactivity to Rickettsia rickettsii antigen should be considered Spotted Fever group reactive. Other organisms within the group include R. akari, R. conorrii, R. australis and R. sibirica. Seroconversion, a fourfold or greater rise in antibody titer, between acute and convalescent sera is considered strong evidence of recent infection. Acute-phase specimens are collected during the first week of illness and convalescent-phase samples are generally obtained 2-4 weeks after resolution of illness. Ideally these samples should be tested simultaneously at the same facility. If the sample submitted was collected during the acute-phase of illness, submit a marked convalescent sample within 25 days for paired testing. RMSF IGM <1:64 <1:64 NA INTERPRETIVE INFORMATION: Rickettsia rickettsii ([facility] Spotted Fever) Ab, IgM Less than 1:64 ....... Negative - No significant level of IgM antibody detected. 1:64 or greater ...... Positive - Presence of IgM antibody detected, which may indicate a current or recent infection; however, low levels of IgM antibodies may occasionally persist for more than 12 months post-infection. Antibody reactivity to Rickettsia rickettsii antigen should be considered Spotted Fever group reactive. Other organisms within the group include R. akari, R. conorrii, R. australis and R. sibirica. Seroconversion, a fourfold or greater rise in antibody titer, between acute and convalescent sera is considered strong evidence of recent infection. Acute-phase specimens are collected during the first week of illness and convalescent-phase samples are generally obtained 2-4 weeks after resolution of illness. Ideally these samples should be tested simultaneously at the same facility. If the sample submitted was collected during the acute-phase of illness, submit a marked convalescent sample within 25 days for paired testing. The CDC does not use IgM results for routine diagnostic testing of [place] Spotted Fever, as the response may not be specific for the agent (resulting in false positives) and the IgM response may be persistent from past infection. Performed By: [facility] [address] [place] [address] Sap Consultant: Alex Palomino MD, PhD CLIA Number: [id number] Thyroid Stimulating Hormone (TSH) 59713 Reviewed date:12/02/2024 02:36:52 PM Interpretation: Performing Lab: Notes/Report: Diagnosis Description: Encounter for screening for other suspected endocrine disorder TSH .996 .358-3.740 MlU/ML Microalbumin (U) Random 8204 3 Reviewed date:08/05/2024 05:07:39 PM Interpretation: Performing Lab: Notes/Report: Diagnosis Description: Proteinuria, unspecified Ur Microalbumin 18.0 .0-30.0 MG/L Ur Creat 186.9 29.0-226.0 Mal/Crea/Ratio 9.6 .0-30.0 mg Alb/g Cr Bone Densitometry-04892 Reviewed date:05/29/2024 03:13:27 PM Interpretation: Performing Lab: Notes/Report: [email or web address]=[id number]&org=iSite Bone Densitometry-48948 Reviewed date:06/03/2024 12:59:07 PM Interpretation: Performing Lab: Notes/Report: See Below For Report Bone Densitometry Diagnosis Description: Other specified disorders of bone density and structure, multiple sites Read See Below For Report CT Abdomen, Pelvis w/o Contr ast-70913 Reviewed date:07/07/2024 05:01:12 PM Interpretation: Performing Lab: Notes/Report: [id number]&org=iSite CT Abdomen, Pelvis w/o Contr ast-12934 Reviewed date:07/07/2024 05:05:09 PM Interpretation: Performing Lab: Notes/Report: See Below For Report [facility] CT utilizes automated exposure control, adjustment of the mA and Read See Below For Report CT Sinus w/o Contrast-34238 Reviewed date:07/07/2024 05:01:16 PM Interpretation: Performing Lab: Notes/Report: [id number]&org=iSite CT Sinus w/o Contrast-26317 Reviewed date:07/07/2024 05:05:15 PM Interpretation: Performing Lab: Notes/Report: See Below For Report [facility] CT utilizes automated exposure control, adjustment of the mA and Read See Below For Report US Renal-88765 Reviewed date:07/09/2024 03:02:43 PM Interpretation: Performing Lab: Notes/Report: [id number]&org=iSite US Renal-08689 Reviewed date:07/09/2024 01:16:39 PM Interpretation: Performing Lab: Notes/Report: See Below For Report US Renal Read See Below For Report XR Outside CD Reviewed date:05/26/2024 02:49:07 PM Interpretation: Performing Lab: Notes/Report: [id number]&org=iSite Urinalysis--61628 Reviewed date:06/04/2024 04:52:34 PM Interpretation: Performing Lab: Notes/Report: Specific gravity UA 1.020 Urine Nitrite - Urine Blood - Urine pH 5.0 Urine Glucose - Urine Leukocyte - Urine Protein Trace Urine Bilirubin - Urine Ketone - Urobilinogen 0.2 Schedule Confirmation Reviewed date:05/14/2024 01:21:26 PM Interpretation: Performing Lab: Notes/Report: Bone Densitometry Schedule Confirmation Reviewed date:05/29/2024 01:17:58 PM Interpretation: Performing Lab: Notes/Report: Bone Densitometry Mammogram Screening Digital Breast Tomosynthesis, bilateral - 60295 Reviewed date:03/30/2025 11:10:53 AM Interpretation: Performing Lab: Notes/Report: Lyme Galina Panel EIA--31380 Reviewed date:07/07/2024 05:05:05 PM Interpretation: Performing Lab: Notes/Report: Borrelia Burgdorferi Abs 0.38 <=0.90 IV NA When Borrelia burgdorferi VlsE1/pepC10 assay is negative further testing is not recommended and will not be performed. REFERENCE INTERVAL: B. burgdorferi VlsE1/pepC10 Abs, ABNER 0.90 IV or less..........Negative : VlsE1 and pepC10 antibodies to B. burgdorferi not detected. 0.91 - 1.09 IV...........Equivocal : Repeat testing in 10-14 days may be helpful. 1.10 IV or greater.......Positive : VlsE1 and pepC10 antibodies to B. burgdorferi detected. Performed By: [facility] [address] [place] [address] Sap Consultant: Alex Palomino MD, PhD CLIA Number: [id number] IH Wrist Min 3V Right - 7311 0 Reviewed date:06/09/2024 08:32:29 AM Interpretation: Performing Lab: Notes/Report: [id number]=[facility] IH Wrist Min 3V Right - 7311 0 Reviewed date:06/09/2024 08:32:20 AM Interpretation: Performing Lab: Notes/Report: The report for this exam was dictated at [facility] . FINAL REPORT Reason For Referral Reason broken wrist. Referring Provider First Name Ignacio mujica Referring Provider Last Name Itzel Referring Provider Speciality Internal M edicine Referred Organization [facility] Referred Provider Hazel Peng Referred Address [address] [address],[place],[address], Referral Priority Routine Reason broken wrist. Diagnosis 1 Closed fracture of r ight wrist, initial encounter (S62.101A) Referral Organization [facility] Referring Provider First Name Ignacio mujica Referring Provider Last Name Itzel Referring Provider Speciality Internal M edicine Referred Provider HAZEL PENG Referred Provider Specialty Orthopedic S urgery General Notes Sonia Sher 09:39:35 AM >faxed Maximiliano Block Heidi 05/01/2024 01:12:02 PM >PER ENCOUNTER PT IS SCHEDULED 05/05, Cammie Viera 05/07/2024 09:56:08 AM >PROGRESS NOTES IN ENCOUTERS Referral Priority Routine Referral Appointment Date 05/05/2024 Reason depression Diagnosis 1 Other depression (F3 2.89) [facility]erral Organization [facility] Referring Provider First Name Mary Alice Referring Provider Last Name Aburto Referring Provider Speciality Nurse Prac johanne Referred Provider [employer] Referred Provider Specialty Person [facility] Referral Priority Routine Medications Medication SIG (Take, Route, Frequency, Duration) Notes Start Date End Date Status GNP Nasal Decongestant 120 mg Tablet Extended [...] 37 Days Active Budesonide (Nasal) A ctive Celecoxib 200 MG Capsule 1 cap Orally [...] FOR 30 days; Duration: 30 03/09/2025 Active Fexofenadine HCl 180 MG Tablet 1 tablet Swallow whole with water; do not take with fruit juices. Orally Once a day Active Chlorzoxazone 500 mg Tablet TAKE ONE TAB LET BY MOUTH THREE TIMES DAILY NEEDED FOR moderate SPASMS FOR 30 DAYS; Duration: 30 Active Acetaminophen 500 MG Tablet 1 tablet as needed Orally every 6 hrs Active One A Day Women 50 Plus - Tablet as directed Orally Active Cholecalciferol 50 MCG (2000 UT) Capsule 1 capsule Orally Once a day Active Cyanocobalamin 500 MCG Lozenge 1 lozenge Orally Once a day Active Magnesium 200 MG Tablet 2 tablets with a meal Orally Once a day Active Alkalol - Solution as directed Nasally Active FreeStyle Joni 14 Day [place] - Device as directed; Duration: 30 days 04/16/2024 Active Fluticasone Propionate 50 MCG/ACT Suspension instill TWO SPRAY IN EACH NOSTRIL TWICE DAILY; Duration: 30 Active Diclofenac Sodium 1 % Gel as directed Externally Four times a day; Duration: 30 days Active Azelastine HCl - Powder as directed Active Nystop 222543 UNIT/GM Powder APPLY topically TWICE DAILY; Duration: 30 Active True Metrix Blood Glucose Test - Strip USE ONE strip TO test blood sugar TWICE DAILY; Duration: 90 Active TRUEplus Lancets 30G - Miscellaneous USE DIRECTED FOUR TIMES DAILY NEEDED; Duration: 30 Active busPIRone HCl 10 mg Tablet 1 1/2 tab ora lly twice a day prn anxiety; Duration: 30 days 07/08/2025 Active Primidone 50 MG Tablet 2 tabs Oral Once a day; Duration: 30 days Active Pantoprazole Sodium 40 mg Tablet Delayed Release TAKE ONE TABLET BY MOUTH EVERY DAY; Duration: 90 Active Brimonidine Tartrate-Timolol 0.2-0.5 % Solution Ophthalmic; Duration: 30 Days Active Vilazodone HCl 40 mg Tablet TAKE ONE TAB LET BY MOUTH ONCE DAILY with food; Duration: 30 Active Oxymetazoline HCl 0.05 % Solution 4 sprays [...] every 4 hrs; Duration: 30 days Not-Taking Mounjaro 15 MG/0.5ML Solution Auto-injector INJECT 15 MG UNDER THE SKIN ONCE WEEKLY FOR diabetes; Duration: 30 Active Losartan Potassium 100 mg Tablet TAKE ONE TABLET BY MOUTH EVERY MORNING; Duration: 30 Active Montelukast Sodium 10 mg Tablet TAKE ONE TABLET BY MOUTH EVERY DAY; Duration: 90 Active Advocate Insulin Pen [place] 31G X 5 MM Miscellaneous USE with lantus DIRECTED; Duration: 50 Active Lidocaine 5 % Patch 1 patch remove after 12 hours Externally Once a day; Duration: 30 days 09/10/2024 Not-Taking Stool Softener 100 MG Tablet 1 tablet as needed Orally Once a day Not-Taking Gas Relief 80 MG Tablet Chewable 1 tablet after meals and at bedtime as needed Orally Four times a day Not-Taking Triamcinolone Acetonide 0.1 % Cream 1 application Externally Two times a Week Not-Taking hydroCHLOROthiazide 25 MG Tablet 1 tablet in the morning Orally Once a day; Duration: 30 days 04/09/2025 10/06/2025 Active Hair Skin & Nails - Tablet as directed Orally Not-Taking Ibuprofen 800 MG Tablet 1 tab Orally Thr ee times a day prn inflammatory pain; Duration: 30 days Not-Taking Atorvastatin Calcium 20 mg Tablet TAKE ONE TABLET BY MOUTH EVERY DAY; Duration: 90 Not-Taking FreeStyle Joni 14 Day Sensor - Miscellaneous as directed; Duration: 30 days Active Ketorolac Tromethamine 0.5 % Solution 1 drop into affected eye as needed Ophthalmic Four times a day Not-Taking FreeStyle Joni 3 Plus Sensor - Miscellaneous USE as directed; Duration: 30 Active prednisoLONE Acetate 1 % Suspension 1 drop into affected eye Ophthalmic Twice a day Not-Taking metFORMIN HCl ER 750 mg Tablet Extended Release 24 Hour TAKE ONE TABLET BY MOUTH EVERY EVENING with a meal; Duration: 30 Not-Taking Lantus SoloStar 100 UNIT/ML Solution Pen-injector inject 20 units UNDER THE SKIN TWICE DAILY; Duration: 30 Not-Taking Immunizations Vaccine Route Administration Date Status Comme nts Flucelvax Quadrivalent IM Intramuscular 06/26/2023 Administered [facility] [place] [address]-86 pt tolerated well/instructed to wait 20 min Flucelvax Quadrivalent Pres Free IM Intramuscular 07/17/2022 Administered [place]: [address]-536-68 Patient tolerated well, advised to wait 20 min at clinic Flucelvax Trivalent, Syringe 0.5 mL, PF Unknown 01/06/2025 Refused Prevnar 20 IM Intramuscular 07/17/2022 Administered [place]: 8449-6026-74 Patient tolerated well, advised to wait 20 min at clinic Social History Tobacco Use: Social History Observation Description Date Details (start date - stop date) Never Smoker NA - NA Social History Depression Screening Social Info Question Answer Notes depression screening findings Findings Suicidality Present PHQ-9 Little interest or p jillian in doing things Several days Feeling down, depressed, or hopeless More than h aquiles the days Trouble falling or staying a [...] Total Score 17 Interpretation Moderately severe depression Drugs/Alcohol: Social Info Question Answer Notes Drugs Have you used drugs other than those for medical reasons in the past 12 months? No Comprehensive Health Assessm ent Social Info Question Answer Notes *Social Determinants of Health Has lack of transportation kept you from medical appointments, meetings, work or from getting things needed for daily living? No Recently, have you worried t hat your food would run out before you got money to buy more? No Do you feel physically and e motionally safe where you currently live? Yes Are you worried about losing your housing? No Have you recently been carlos rned that your utilities would be turned off (electricity, gas, or water)? No Availability of resources to meet daily needs? Y es What is your current housing situation? I have h ousing What is the highest level of school that you have completed? High school diploma How many hours do you work on weekly basis? Othe r In the past year, have you o r any family members you live with been unable to get any of the following when it was really needed? None How often do you see or talk to people that you care about and feel close to? More than 5 times How stressed are you? Low Do you have medical insurance through your emplo pete? Other Have you served in the [employer]? ([employer]) No Drug/Alcohol: Social Info Question Answer Notes AUDIT-C (Standard) Did you have a drink containing alcohol in the past year? No Points 0 Interpretation Negative Tobacco Use: Social Info Question Answer Notes Tobacco Control (Standard) Tobacco use: Nonsmoker Section Notes: 01/05/22 01/05/22 01/05/22 01/05/22 01/05/22 01/05/22 2-6-23 PHQ9 01/05/22 2-6-23 PHQ9 01/05/22 2-6-23 PHQ9 01/05/22 2-6-23 PHQ9 Depression screen completed 10/02/2023 score 13 Depression screen completed 02/04/2024 score 6 Depression screen completed 02/04/2024 score 6 Depression screen completed 02/04/2024 score 6 Depression screen completed 02/04/2024 score 6 Depression screen completed 02/04/2024 score 6 Depression screen completed 05/14/2024 Depression screen completed 05/14/2024 Depression screen completed 05/14/2024 Depression screen completed 05/14/2024 Depression screen completed 05/14/2024 Depression screen completed 05/14/2024 Tob - 05/14/24 Depression screen completed 05/14/2024 Tob - 05/14/24 Depression screen completed 05/14/2024 Tob - 05/14/24 Depression screen completed 05/14/2024 Tob - 05/14/24 Depression screen completed 05/14/2024 Tob - 05/14/24, PHQ9 04/10/2025 Depression screen completed 05/14/2024 Tob - 05/14/24 Depression screen completed 05/14/2024 Tob - 0901/05/22 01/05/22 2-6-23 PHQ9 01/05/22 2-6- PHQ9 Depression screen completed 10/02/2023 score 13 Depression screen completed 02/04/2024 score 6 Depression screen completed 02/04/2024 score 6 Depression screen completed 05/14/2024 Depression screen completed 05/14/2024 Depression screen completed 05/14/2024 Depression screen completed 05/14/2024 Tob - 05/14/24 Depression screen completed 05/14/2024 Tob - 05/14/24 Depression screen completed 05/14/2024 Tob - 05/14/24 01/05/22 2-- PHQ9 Depression screen completed 05/14/2024 Tob - 05/14/24 Depression screen completed 02/04/2024 score 6 Depression screen completed 10/02/2023 score 13 Depression screen completed 05/14/2024 Tob - 05/14/24 Depression screen completed 05/14/2024 Tob - 05/14/24 Depression screen completed 05/14/2024 Tob - 05/14/24 Depression screen completed 05/14/2024 Tob - 05/14/24 Depression screen completed 02/04/2024 score 6 Depression screen completed 10/02/2023 score 13 Depression screen completed 10/02/2023 score 13 Depression screen completed 10/02/2023 score 13 01/05/22 2-- PHQ9 01/05/22 2-- PHQ9 Depression screen completed 05/14/2024 Tob - 05/14/24 Depression screen completed 05/14/2024 Tob - 05/14/24 Depression screen completed 05/14/2024 Tob - 05/14/24 Depression screen completed 05/14/2024 Depression screen completed 05/14/2024 Depression screen completed 02/04/2024 score 6 Depression screen completed 02/04/2024 score 6 Depression screen completed 10/02/2023 score 13 01/05/22 2-6- PHQ9 01/05/22 2-- PHQ9 01/05/22 2-- PHQ9 01/05/22 01/05/22 01/05/22 Depression screen completed 10/02/2023 score 13 Problems Problem Type SNOMED Code ICD Code Onset Dates Problem Status W/U Status Risk Notes Problem Diabetic neuropathic arthropathy (585832712) Type 2 diabetes mellitus with diabetic neuropathic arthropathy (E11.610) Active confirmed Problem Hyperglycemia due to type 2 diabetes mellitus (970307227268391) Type 2 diabetes mellitus with hyperglycemia (E11.65) Active confirmed Problem Type 2 diabetes mellitus with other specified complication (E11.69) Active confirmed Problem Disorder due to type 2 diabetes mellitus (227938398) Type 2 diabetes mellitus with unspecified complications (E11.8) Active confirmed Problem Type II diabetes mellitus without complication (846072479) Type 2 diabetes mellitus without complications (E11.9) Active confirmed Problem Diabetic severe hyperglycemia (187628955) Other specified diabetes mellitus with hyperglycemia (E13.65) Active confirmed Problem Hyperlipidemia (20932130) Hyperlipidemia, unspecified (E78.5) Active confirmed Problem Moderate recurrent major depression (91185279) Major depressive disorder, recurrent, moderate (F33.1) Active confirmed Problem Primary insomnia (0469920) Primary insomnia (F51.01) Active confirmed Problem Essential hypertension (96377733) Essential (primary) hypertension (I10) Active confirmed Problem Chronic sinusitis (96224354) Chronic sinusitis, unspecified (J32.9) Active confirmed Problem Gastro-esophageal reflux disease without esophagitis (111837296) Gastro-esophageal reflux disease without esophagitis (K21.9) Active confirmed Problem Sciatica (15161374) Lumbago with sciatica, left side (M54.42) Active confirmed Problem Fall on or from stairs or steps (event) (519262242) Fall (on) (from) unspecified stairs and steps, initial encounter (W10.9XXA) Active confirmed Problem Long-term current use of insulin (506238656) alf (current) use of insulin (Z79.4) Active confirmed Problem History of fall (121536399) History of falling (Z91.81) Active confirmed Problem Type II diabetes mellitus without complication (272088664) Controlled type 2 diabetes mellitus without complication, without long-term current use of insulin (E11.9) Active confirmed Problem Acute pain of le ft knee (M25.562) Active confirmed Problem Gastroesophageal reflux disease without esophagitis (694132569) Gastroesophageal reflux disease without esophagitis (K21.9) Active confirmed Problem Anxiety (49165436) Anxiety (F41.9) Active confi rmed Problem Rash (561264334) Rash (R21) Active confirmed Problem Polyneuropathy due to type 2 diabetes mellitus (403609858) Diabetic polyneuropathy associated with type 2 diabetes mellitus (E11.42) Active confirmed Problem Acute maxillary sinusitis (68991293) Acute non-recurrent maxillary sinusitis (J01.00) Active confirmed Problem Acute sinusitis (34520589) Acute sinusitis, recurrence not specified, unspecified location (J01.90) Active confirmed Problem Obesity (255866902) Obesity (BMI 30-39.9) (E66.9) Active confirmed Problem Acute sinusitis (97244489) Acute non-recurrent sinusitis, unspecified location (J01.90) Active confirmed Problem Sciatica (78652478) Acute left-s ided low back pain with left-sided sciatica (M54.42) Active confirmed Problem Moderate recurrent major depression (02139124) Moderate episode of recurrent major depressive disorder (F33.1) Active confirmed Problem Insomnia (232536006) Insomnia, unspecified type (G47.00) Active confirmed Problem Polyneuropathy due to type 2 diabetes mellitus (126706362) Controlled type 2 diabetes mellitus with diabetic polyneuropathy, without long-term current use of insulin (E11.42) Active confirmed Problem Acute suppurative otitis media without spontaneous rupture of ear drum (57258591) Non-recurrent acute suppurative otitis media of left ear without spontaneous rupture of tympanic membrane (H66.002) Active confirmed Problem Febrile illness (121041592) Febrile illness (R50.9) Active confirmed Problem Onychomycosis (959705855) Onychomycosis (B35.1) Active confirmed Problem Depression (248300585) Other depression (F32.89) Active confirmed Problem Lumbosacral spondylosis without myelopathy (27788058) Osteoarthritis of spine with radiculopathy, lumbar region (M47.26) Active confirmed Problem Morbid obesity (383590749) Morbid obesity (E66.01) Active confirmed Problem Fatty liver (867972028) Fatty liver (K76.0) Active confirmed Problem Hypertension (75518567) Hypertension (I10) Active confirmed Problem Herpes zoster without complication (977073706) Herpes zoster without complication (B02.9) Active confirmed Problem Hyperglycemia due to type 2 diabetes mellitus (701468051718527) Type 2 diabetes mellitus with hyperglycemia, unspecified whether fci insulin use (E11.65) Active confirmed Problem Diabetic peripheral neuropathy associated with type 2 diabetes mellitus (7709062303685) Type 2 diabetes mellitus with diabetic neuropathy, unspecified whether poiser balance insulin use (E11.40) Active confirmed Problem Environmental allergy (881942783) Environmental allergies (Z91.09) Active confirmed Problem Renal mass (923482798) Renal mass (N28.89) Active confirmed Problem Ingrowing nail (993253095) Ingrown right big toenail (L60.0) Active confirmed Problem Cold sore (9018025) Cold sore (B00.1) Active co nfirmed Problem Closed fracture of right wrist (29973084010942090) Closed fracture of right wrist, initial encounter (S62.101A) Active confirmed Problem Pure hyperglyceridemia (434864517) Pure hypertriglyceridemia (E78.1) Active confirmed Problem Acute upper respiratory infection (27715305) Viral URI with cough (J06.9) Active confirmed Problem Hyperlipidaemia (55161210) Borderline hyperlipidemia (E78.5) Active confirmed Problem Body mass index 30.00 to 34.99 (130015152096267) Body mass index [BMI] 31.0-31.9, adult (Z68.31) Active confirmed Problem Infection of kristian l bed of toe of right foot (L03.031) Active confirmed Problem Primary hypertension (30614574) Primary hypertension (I10) Active confirmed Problem Candidiasis of vagina (disorder) (83429650) Yeast vaginitis (B37.31) Active confirmed Vital Signs Heart Rate 103 /min 04/09/2025 Temperature 97.3 degrees Fahrenheit 04/09/2025 Respiratory Rate 20 /min 04/09/2025 Blood pressure diastolic 75 mm Hg 04/09/2025 Height-cm 163.83 cm 04/09/2025 Oximetry 99 % 04/09/2025 Weight-kg 85.73 kg 04/09/2025 Height 64.5 in 04/09/2025 Blood pressure systolic 139 mm Hg 04/09/2025 Weight 189 lbs 04/09/2025 BMI 31.94 kg/m2 04/09/2025 Encounters Encounter Location Date Provider Diagnosis [facility] [address] [address] 05/01/2024 Juan Robbins Closed fracture of right wrist, initial encounter S62.101A and Fall W19.XXXA [facility] [address] [place] [address] 05/05/2024 Hazel Peng Sprain of right wrist, initial encounter S63.501A [facility] [address] [address] 05/07/2024 Juan Robbins Essential (primary) hypertension I10 ; Type 2 diabetes mellitus with unspecified complications E11.8 and senior software development manager (current) use of insulin Z79.4 [facility] [address] [place] [address] 05/14/2024 Juan Robbins Type 2 diabetes mellitus with hyperglycemia, unspecified whether fci insulin use E11.65 ; Non-recurrent acute suppurative otitis media of left ear without spontaneous rupture of tympanic membrane H66.002 ; Depression screen Z13.31 and Type 2 diabetes mellitus with unspecified complications E11.8 [facility] [address] [place] [address] 05/26/2024 Juan Robbins Chronic sinusitis, unspecified J32.9 and Other specified bacterial agents as the cause of diseases classified elsewhere B96.89 [facility] [address] [place] [address] 05/28/2024 Hazel Peng Closed nondisplaced fracture of styloid process of right radius with routine healing, subsequent encounter S52.514D [facility] [address] [place] [address] 06/04/2024 Juan Robbins Febrile illness R50.9 and UTI symptoms R39.9 [facility] [place] 06/07/2024 Juan Robbins Obesity (BMI 30-39.9) E66.9 and Type 2 diabetes mellitus with unspecified complications E11.8 [facility] [address] [place] [address] 06/11/2024 Juan Robbins Renal mass N28.89 and Yeast vaginitis B37.31 [facility] [address] [address] 07/07/2024 Juan Robbins Type 2 diabetes mellitus with hyperglycemia, unspecified whether fci insulin use E11.65 and Moderate episode of recurrent major depressive disorder F33.1 [facility] [address] [address] 08/04/2024 Juan Robbins Nasal sinus congestion R09.81 and Microalbuminuria R80.9 [facility] [address] [address] 08/22/2024 Juan Robbins Type 2 diabetes mellitus with hyperglycemia, unspecified whether poiser balance insulin use E11.65 and Type 2 diabetes mellitus with unspecified complications E11.8 [facility] [address] [address] 09/10/2024 Juan Robbins Type 2 diabetes mellitus with hyperglycemia, unspecified whether poiser balance insulin use E11.65 ; Essential (primary) hypertension I10 ; Major depressive disorder, recurrent, moderate F33.1 ; Hyperlipidemia, unspecified E78.5 ; Morbid obesity E66.01 ; BMI 30.0-30.9,adult Z68.30 and Type 2 diabetes mellitus with unspecified complications E11.8 [facility] [address] [address] 09/23/2024 Juan Robbins Viral URI with cough J06.9 [facility] [address] [address] 09/29/2024 Juan Robbins Viral URI with cough J06.9 and Encounter for screening mammogram for malignant neoplasm of breast Z12.31 [facility] [address] [address] 10/09/2024 Juan Robbins Type 2 diabetes mellitus with unspecified complications E11.8 [facility] [address] [address] 12/01/2024 Mary Alice Aburto Essential (primary) hypertension I10 ; Hyperlipidemia, unspecified E78.5 ; Type 2 diabetes mellitus with diabetic neuropathic arthropathy E11.610 ; senior software development manager (current) use of insulin Z79.4 ; Thyroid disorder screen Z13.29 and Shoulder pain M25.519 [facility] [address] [address] 01/01/2025 [facility] Essential (primary) hypertension I10 and Sinusitis J32.9 [facility] [address] [address] 01/06/2025 [facility] Immunization not carried out because of patient refusal Z28.21 ; Type 2 diabetes mellitus with diabetic neuropathic arthropathy E11.610 ; Essential (primary) hypertension I10 ; senior software development manager (current) use of insulin Z79.4 ; Osteoarthritis of spine with radiculopathy, lumbar region M47.26 ; Muscle spasm M62.838 and Arm pain, right M79.601 [facility] [address] [address] 04/09/2025 [facility] Essential (primary) hypertension I10 ; Type 2 diabetes mellitus with diabetic neuropathic arthropathy E11.610 ; Other depression F32.89 ; Anxiety F41.9 ; alf (current) use of insulin Z79.4 ; Thyroid disorder screen Z13.29 ; Dysuria R30.0 and Cystitis N30.90 [facility] [address] [place] [address] 09/29/2024 Juan Robbins [facility] [place] 04/02/2025 Juan Robbins Hypertension I10 and Anxiety F41.9 [facility] [address] [address] 04/16/2024 Juan Robbins [facility] [place] 04/17/2024 [facility] Type 2 diabetes mellitus with unspecified complications E11.8 and Gastro-esophageal reflux disease without esophagitis K21.9 [facility] [address] [place] [address] 05/07/2024 Juan Robbins Screening for osteoporosis Z13.820 [facility] [address] [place] [address] 05/08/2024 Juan Robbins [facility] [address] [place] [address] 05/09/2024 Juan Robbins Other specified disorders of bone density and structure, multiple sites M85.89 [facility] [address] [place] [address] 05/14/2024 Juan Robbins [facility] [place] 05/19/2024 [facility] Type 2 diabetes mellitus with unspecified complications E11.8 and Gastro-esophageal reflux disease without esophagitis K21.9 [facility] [address] [place] [address] 05/27/2024 [facility] [address] [place] [address] 06/05/2024 [facility] [place] 06/06/2024 Juan Robbins Type 2 diabetes mellitus with unspecified complications E11.8 and Essential (primary) hypertension I10 [facility] [address] [place] [address] 06/17/2024 Juan Robbins Type 2 diabetes mellitus with hyperglycemia, unspecified whether poiser balance insulin use E11.65 [facility] [address] [place] [address] 06/18/2024 Juan Robbins [facility] [place] 07/04/2024 Juan Robbins Type 2 diabetes mellitus with unspecified complications E11.8 and Essential (primary) hypertension I10 [facility] [address] [place] [address] 07/10/2024 Juan Robbins [facility] [place] 08/01/2024 Juan Robbins Type 2 diabetes mellitus with unspecified complications E11.8 and senior software development manager (current) use of insulin Z79.4 [facility] [place] 08/29/2024 Juan Robbins Type 2 diabetes mellitus with unspecified complications E11.8 and Obesity (BMI 30-39.9) E66.9 [facility] [address] [place] [address] 09/08/2024 Juan Robbins Nasal sinus congestion R09.81 [facility] [address] [place] [address] 09/22/2024 Juan Robbins [facility] [address] [place] [address] 09/30/2024 Juan Robbins [facility] [place] 10/01/2024 Juan Robbins Type 2 diabetes mellitus with unspecified complications E11.8 and Gastroesophageal reflux disease without esophagitis K21.9 [facility] [address] [place] [address] 10/20/2024 Juan Robbins Encounter for screening mammogram for malignant neoplasm of breast Z12.31 [facility] [address] [place] [address] 10/21/2024 Juan Robbins Type 2 diabetes mellitus with hyperglycemia, unspecified whether fci insulin use E11.65 [facility] [place] 10/30/2024 Juan Robbins Type 2 diabetes mellitus with unspecified complications E11.8 and Anxiety F41.9 [facility] [address] [place] [address] 11/24/2024 Juan Robbins [facility] [address] [place] [address] 11/26/2024 Juan Robbins [facility] [place] 12/01/2024 Juan Robbins Type 2 diabetes mellitus with unspecified complications E11.8 and Hyperlipidemia, unspecified E78.5 [facility] [address] [place] [address] 12/23/2024 [facility] [place] 12/30/2024 Juan Robbins Type 2 diabetes mellitus with unspecified complications E11.8 and Primary hypertension I10 [facility] [place] 02/02/2025 Juan Robbins Type 2 diabetes mellitus with unspecified complications E11.8 and Morbid obesity E66.01 [facility] [address] [place] [address] 02/13/2025 Mary Alice Aburto [facility] [address] [place] [address] 02/19/2025 Juan Robbins [facility] [address] [place] [address] 03/02/2025 Juan Robbins [facility] [place] 03/03/2025 Juan Robbins Essential (primary) hypertension I10 and Type 2 diabetes mellitus without complications E11.9 Assessments Encounter Date Diagnosis (ICD Code) Assessment Notes Treatment Notes Treatment Clinical Notes Section Notes 04/17/2024 Type 2 diabetes mellitus with unspecified complications (ICD-10 - E11.8) 05/01/2024 Closed fracture of right wrist, initial encounter (ICD-10 - S62.101A) 05/01/2024 Fall (ICD-10 - W19.XXXA) 05/05/2024 Sprain of right wrist, initial encounter (ICD-10 - S63.501A) Laverne has a subtle avulsion fracture off the tip of the radial styloid. Widening is also noted of the scapholunate joint however she is not particularly swollen or tender here. I wonder if this is not a older condition. I told her that treatment for the distal radius would involve splinting and this should do well. I told her that the radial lunate joint typically does not do well with surgery particularly if there is concern for a degenerative tear. I have recommended conservative care for this. Surgery could be considered if she remains symptomatic. She is placed in a Velcro wrist brace.([id number]) I will see her back in [place] in 3 weeks with x-rays. 05/07/2024 Essential (primary) hypertension (ICD-10 - I10) Good 05/07/2024 Screening for osteoporosis (ICD-10 - Z13.820) 05/09/2024 Other specified disorders of bone density and structure, multiple sites (ICD-10 - M85.89) 05/14/2024 Type 2 diabetes mellitus with hyperglycemia, unspecified whether fci insulin use (ICD-10 - E11.65) 05/14/2024 Non-recurrent acute suppurative otitis media of left ear without spontaneous rupture of tympanic membrane (ICD-10 - H66.002) 05/26/2024 Chronic sinusitis, unspecified (ICD-10 - J32.9) 05/26/2024 Other specified bacterial agents as the cause of diseases classified elsewhere (ICD-10 - B96.89) 05/28/2024 Closed nondisplaced fracture of styloid process of right radius with routine healing, subsequent encounter (ICD-10 - S52.514D) Laverne is doing quite well. I am wondering if the scapholunate joint widening was not pre-existing condition. She is bouncing back from this quite quickly. At this point I think we can discontinue the brace. She will be a work on range of motion on her own. I will see her back in 4 weeks with repeat radiographs. 06/04/2024 Febrile illness (ICD-10 - R50.9) 06/04/2024 UTI symptoms (ICD-10 - R39.9) 06/06/2024 Type 2 diabetes mellitus with unspecified complications (ICD-10 - E11.8) 05/19/2024 Type 2 diabetes mellitus with unspecified complications (ICD-10 - E11.8) Diabetes Sick-Day Plan: Care Instructions material was published 06/07/2024 Obesity (BMI 30-39.9) (ICD-10 - E66.9) 06/11/2024 Renal mass (ICD-10 - N28.89) 06/11/2024 Yeast vaginitis (ICD-10 - B37.31) 06/17/2024 Type 2 diabetes mellitus with hyperglycemia, unspecified whether fci insulin use (ICD-10 - E11.65) 07/04/2024 Type 2 diabetes mellitus with unspecified complications (ICD-10 - E11.8) Learning About Diabetes and Exercise material was published, Learning About Meal Planning for Diabetes material was published, Learning About the Glycemic Index material was published 07/07/2024 Type 2 diabetes mellitus with hyperglycemia, unspecified whether fci insulin use (ICD-10 - E11.65) 07/07/2024 Moderate episode of recurrent major depressive disorder (ICD-10 - F33.1) 08/01/2024 Type 2 diabetes mellitus with unspecified complications (ICD-10 - E11.8) Diabetes Sick-Day Plan: Care Instructions material was published 09/08/2024 Nasal sinus congestion (ICD-10 - R09.81) 09/10/2024 Type 2 diabetes mellitus with hyperglycemia, unspecified whether poiser balance insulin use (ICD-10 - E11.65) 09/10/2024 Essential (primary) hypertension (ICD-10 - I10) 08/04/2024 Nasal sinus congestion (ICD-10 - R09.81) 08/04/2024 Microalbuminuria (ICD-10 - R80.9) 08/22/2024 Type 2 diabetes mellitus with hyperglycemia, unspecified whether poiser balance insulin use (ICD-10 - E11.65) 08/22/2024 Type 2 diabetes mellitus with unspecified complications (ICD-10 - E11.8) 08/29/2024 Type 2 diabetes mellitus with unspecified complications (ICD-10 - E11.8) 09/23/2024 Viral URI with cough (ICD-10 - J06.9) 09/29/2024 Viral URI with cough (ICD-10 - J06.9) push fluids, tylenol for fevers 09/29/2024 Encounter for screening mammogram for malignant neoplasm of breast (ICD-10 - Z12.31) 10/01/2024 Type 2 diabetes mellitus with unspecified complications (ICD-10 - E11.8) 10/09/2024 Type 2 diabetes mellitus with unspecified complications (ICD-10 - E11.8) 10/20/2024 Encounter for screening mammogram for malignant neoplasm of breast (ICD-10 - Z12.31) 10/21/2024 Type 2 diabetes mellitus with hyperglycemia, unspecified whether fci insulin use (ICD-10 - E11.65) 10/30/2024 Type 2 diabetes mellitus with unspecified complications (ICD-10 - E11.8) 12/01/2024 Essential (primary) hypertension (ICD-10 - I10) losartan cbc cmp 12/01/2024 Hyperlipidemia, unspecified (ICD-10 - E78.5) lipids 12/01/2024 Type 2 diabetes mellitus with unspecified complications (ICD-10 - E11.8) 12/30/2024 Type 2 diabetes mellitus with unspecified complications (ICD-10 - E11.8) 01/01/2025 Essential (primary) hypertension (ICD-10 - I10) amlodipine losartan stop pseudoephedrine 01/01/2025 Sinusitis (ICD-10 - J32.9) depomedrol/decadr on im rocephin [address] [place]a 01/06/2025 Immunization not carried out because of patient refusal (ICD-10 - Z28.21) 01/06/2025 Type 2 diabetes mellitus with diabetic neuropathic arthropathy (ICD-10 - E11.610) continue meds 02/02/2025 Type 2 diabetes mellitus with unspecified complications (ICD-10 - E11.8) 03/03/2025 Essential (primary) hypertension (ICD-10 - I10) 04/09/2025 Essential (primary) hypertension (ICD-10 - I10) hctz losartan cbc cmp lipids 04/09/2025 Type 2 diabetes mellitus with diabetic neuropathic arthropathy (ICD-10 - E11.610) insulin mounjaro 04/02/2025 Hypertension (ICD-10 - I10) 04/02/2025 Anxiety (ICD-10 - F41.9) 04/09/2025 Other depression (ICD-10 - F32.89) continue meds [facility] 03/03/2025 Type 2 diabetes mellitus without complications (ICD-10 - E11.9) 02/02/2025 Morbid obesity (ICD-10 - E66.01) 01/06/2025 Essential (primary) hypertension (ICD-10 - I10) continue meds 12/30/2024 Primary hypertension (ICD-10 - I10) 12/01/2024 Hyperlipidemia, unspecified (ICD-10 - E78.5) 12/01/2024 Type 2 diabetes mellitus with diabetic neuropathic arthropathy (ICD-10 - E11.610) continue meds ha1c tramadol 10/30/2024 Anxiety (ICD-10 - F41.9) 10/01/2024 Gastroesophageal reflux disease without esophagitis (ICD-10 - K21.9) 08/29/2024 Obesity (BMI 30-39.9) (ICD-10 - E66.9) 09/10/2024 Major depressive disorder, recurrent, moderate (ICD-10 - F33.1) 08/01/2024 alf (current) use of insulin (ICD-10 - Z79.4) 07/04/2024 Essential (primary) hypertension (ICD-10 - I10) 06/07/2024 Type 2 diabetes mellitus with unspecified complications (ICD-10 - E11.8) 05/19/2024 Gastro-esophageal reflux disease without esophagitis (ICD-10 - K21.9) 06/06/2024 Essential (primary) hypertension (ICD-10 - I10) 05/14/2024 Depression screen (ICD-10 - Z13.31) 05/07/2024 Type 2 diabetes mellitus with unspecified complications (ICD-10 - E11.8) 04/17/2024 Gastro-esophageal reflux disease without esophagitis (ICD-10 - K21.9) 05/07/2024 alf (current) use of insulin (ICD-10 - Z79.4) 05/14/2024 Type 2 diabetes mellitus with unspecified complications (ICD-10 - E11.8) 09/10/2024 Hyperlipidemia, unspecified (ICD-10 - E78.5) 12/01/2024 senior software development manager (current) use of insulin (ICD-10 - Z79.4) 01/06/2025 senior software development manager (current) use of insulin (ICD-10 - Z79.4) 04/09/2025 Anxiety (ICD-10 - F41.9) buspar 04/09/2025 senior software development manager (current) use of insulin (ICD-10 - Z79.4) ha1c 01/06/2025 Osteoarthritis of spine with radiculopathy, lumbar region (ICD-10 - M47.26) celebrex 12/01/2024 Thyroid disorder screen (ICD-10 - Z13.29) tsh 09/10/2024 Morbid obesity (ICD-10 - E66.01) 09/10/2024 BMI 30.0-30.9,adult (ICD-10 - Z68.30) 12/01/2024 Shoulder pain (ICD-10 - M25.519) 01/06/2025 Muscle spasm (ICD-10 - M62.838) flexeril 04/09/2025 Thyroid disorder screen (ICD-10 - Z13.29) tsh 04/09/2025 Dysuria (ICD-10 - R30.0) ua 01/06/2025 Arm pain, right (ICD-10 - M79.601) 09/10/2024 Type 2 diabetes mellitus with unspecified complications (ICD-10 - E11.8) 04/09/2025 Cystitis (ICD-10 - N30.90) cipro 09/29/2024 Other All patient's questions are encouraged and addressed to their apparent satisfaction . They are agreeable with the proposed plan of care and deny further needs or concerns. I am happy to see patient prior to next office visit as needed for acute concerns. 12/01/2024 Other Questions asked and answered; discharged to home. Venipuncture : Performed by: Rick ALVAREZ Attempts: x1 Location: RAC Needle gauge: 21g Patient tolerated well. 01/01/2025 Other Questions asked and answered; discharged to home. 01/06/2025 Other Questions asked and answered; discharged to home. 04/09/2025 Other Questions asked and answered; discharged to home. 04/17/2024 Other Learning About Metformin for Type 2 Diabetes material was published, Metformin Oral Tablet (METFORMIN - ORAL) material was published, Learning About Low Blood Sugar (Hypoglycemia) in Diabetes material was published 06/06/2024 Other Vaginal Yeast Infection: Care Instructions material was published, Yeast Skin Infection: Care Instructions material was published 07/04/2024 Other Fatigue: Care Instructions material was published, Learning About Conserving Your Energy material was published 10/01/2024 Other Cough: Care Instructions material was published 12/30/2024 Other Fever: Care Instructions material was published Plan Of Treatment Pending Test Test Name Order Date Wrist 3V 05/28/2024 Hand 2V [id number] 02/04/2024 Mammogram Screen Solo Ambrose [id number] Future Test Test Name Order Date CBC w\ Auto Diff [id number] 04/09/2025 Comprehensive Metabolic Panel (CMP) 8005 3 04/09/2025 Hemoglobin A1c 79088 04/09/2025 Lipid Panel Reflex DLDL 02244, 63740 Thyroid Stimulating Hormone (TSH) 26700 04/09/2025 Next Appt Details Provider Name:Mary Alice Aburto, 05/21/2025 01:00:00 PM, [address] [place] [address], [place], [address], Insurance Providers Payer Name Payer Address Payer Phone Subscriber Number Group Number Insured Name Patient Relationship to Insured Coverage Start Date Coverage End Date [place] Replacement [address] [facility] [phone] [id number] Laverne Ambrose Self - patient is the insured Medications Administered Medication Instructions Date of Administration Dosage Notes DEPO-Medrol 10/02/2023 40 mg [facility] 32597-076 3-01 pt tolerated well/instructed to wait 20 min DEPO-Medrol 01/01/2025 40 mg [facility] 09947-178 3-01 pt tolerated well/instructed to wait 20 min DEPO-Medrol 12/20/2023 40 mg [id number]-[id number] 3-01 Patient tolerated well. dexAMETHasone 10/02/2023 4 mg [facility] [address]29-0 423-00 pt tolerated well/instructed to wait 20 min Ketorolac Tromethamine 01/05/2022 60 mg [facility]: [address]-134-02 Patient tolerated well, advised to wait 20 min at clinic Rocephin 01/01/2025 1 g [facility] [address] -11 pt tolerated well/instructed to wait 20 min DEPO-Medrol 06/30/2022 40 mg [facility] 58643-586 4-1 pt tolerated well/instructed to wait 20 min DEPO-Medrol 06/19/2022 40 mg [facility]: [address]-38 Patient tolerated well, advised to wait 20 min at clinic DEPO-Medrol 01/05/2022 40 mg [facility]: [address]-86 Patient tolerated well, advised to wait 20 min at clinic DEPO-Medrol 11/07/2021 40 mg [id number] /dec decadron 4 mg im with depomedrol 40 mg im pt tolerated well/instructed to wait 20min for eval DEPO-Medrol 04/04/2024 40 mg [facility] 72599-413 3-01 pt tolerated well/instructed to wait 20 min DEPO-Medrol 02/29/2024 40 mg [facility] 92128-866 3-01 pt tolerated well/instructed to wait 20 min dexAMETHasone 06/30/2022 4 mg [facility] 13651-9 39-30 pt tolerated well/instructed to wait 20 min dexAMETHasone 06/19/2022 4 mg ND: [address]-225-03 Patient tolerated well, advised to wait 20 min at clinic dexAMETHasone 01/05/2022 4 mg [facility]: [address]815-68 Patient tolerated well, advised to wait 20 min at clinic dexAMETHasone 11/07/2021 4 mg [facility] 23653-3 39-30 pt tolerated well/instructed to wait 20min for eval dexAMETHasone 01/01/2025 4 mg ndc 84122-1 423-00 pt tolerated well/instructed to wait 20 min dexAMETHasone 04/04/2024 4 mg ndc 32100-9 423-00 pt tolerated well/instructed to wait 20 min dexAMETHasone 02/29/2024 4 mg ndc 25015-4 423-00 pt tolerated well/instructed to wait 20 min dexAMETHasone 12/20/2023 4 mg [id number]-49453-5 423-00 Patient tolerated well. Rocephin 06/04/2024 1 g Rocephin 05/14/2024 1 g Rocephin 05/03/2023 1 g [id number] -11 Patient tolerated well. Rocephin 06/30/2022 1 g [facility] 7420-7789- 11 pt tolerated well/instructed to wait 20 min Medical (General) History Medical History History ICD Code used insulin since 2011 type II diabetes Chicken Pox measles alopecia anemia anxiety depression chronic sinusitis Back Trouble GERD High Blood Pressure alopecia totalis Surgical History Surgery Date(Month/Year) tubal ligation 1989 cholecystectomy 2017 fractured wrist repair left 2003 fractured left wrist repair 2005 sinus 2000 Hospitalization History Reason Date(Month/Year) see surgery hx bells palsy 2017
== END 2025-04-17 00:37 | disposition left against medical advice (07) ==
PROVIDERS: Emergency Provider Family Medicine; PCP Nurse Practitioner Family
DX: Z53.21 Procedure and treatment not carried out due to patient leaving prior to being seen by health care provider (principal)

== ENCOUNTER → 2025-05-20 14:46 | Outpatient (BNVA) | payer MEDICARE, SELFPAY | PROVIDERS: PCP Internal Medicine; Visit Provider Podiatrist Foot & Ankle Surgery | DX: L60.3 Nail dystrophy (principal); G62.9 Polyneuropathy, unspecified; L60.0 Ingrowing nail; L03.115 Cellulitis of right lower limb; E11.42 Type 2 diabetes mellitus with diabetic polyneuropathy; Z79.4 Long term (current) use of insulin | CPT/HCPCS: 99213 ==

== ENCOUNTER → 2025-05-27 14:52 | Outpatient (BNVA) | payer MEDICARE, SELFPAY | PROVIDERS: PCP Internal Medicine; Visit Provider Podiatrist Foot & Ankle Surgery | DX: E11.42 Type 2 diabetes mellitus with diabetic polyneuropathy (principal); L60.3 Nail dystrophy; G62.9 Polyneuropathy, unspecified; L60.0 Ingrowing nail; Z79.4 Long term (current) use of insulin | CPT/HCPCS: 99213 ==

== ENCOUNTER 2025-06-10 09:11 | Outpatient (CLI) | payer MEDICARE, SELFPAY ==
[2025-06-10 10:15] LABS: Estmated Average Glucose 186; Hemoglobin A1C 8.1 % (4.0-6.0)
[2025-06-10 10:25] LABS: Alanine Aminotransferase 37 U/L (0-33); Albumin Level 4.1 g/dL (3.5-5.2); Alkaline Phosphatase 89 U/L (35-105); Anion Gap 16.0 (5-19); Aspartate Amino Transferase 31 U/L (0-32); Blood Urea Nitrogen 18 mg/dL (8-23); Calcium 9.4 mg/dL (8.5-10.5); Carbon Dioxide 28 mmol/L (22-29); Chloride 99 mmol/L (98-107); Cholesterol 181 mg/dL (0-200); Globulin 3.7 g/dL (1.3-4.6); Glucose 159 mg/dL (65-115); HDL Cholesterol 61 mg/dL (60-100); Osmolality Calculated 293 mOsm/kg (285-295); Potassium 4.0 mmol/L (3.5-5.1); Sodium 139 mmol/L (136-145); Total Protein 7.8 g/dL (6.6-8.7); Triglycerides 152 mg/dL (0-150)
[2025-06-10 10:29] LABS: Creatinine Urine, Random 164 mg/dL (28-217); Microalbum Creatinine Ratio Ur 6 mg/dL (0-20)
== END 2025-06-10 09:12 | disposition home or self-care (01) ==
LOC: LAB 09:16
PROVIDERS: PCP Nurse Practitioner Family; Visit Provider Internal Medicine
DX: E11.9 Type 2 diabetes mellitus without complications (principal)
CPT/HCPCS: 36415; 80053; 80061; 82044; 83036

== ENCOUNTER → 2025-06-18 10:23 | Outpatient (BNVA) | payer MEDICARE, SELFPAY | PROVIDERS: PCP Nurse Practitioner Family; Visit Provider Podiatrist Foot & Ankle Surgery | DX: L60.0 Ingrowing nail (principal); L60.3 Nail dystrophy; G62.9 Polyneuropathy, unspecified; E11.42 Type 2 diabetes mellitus with diabetic polyneuropathy; Z79.4 Long term (current) use of insulin | CPT/HCPCS: 99214 ==

== ENCOUNTER → 2025-08-12 11:10 | Outpatient (BNVA) | payer MEDICARE, SELFPAY | PROVIDERS: PCP Nurse Practitioner Family; Referring Provider Specialist; Visit Provider Internal Medicine Endocrinology, Diabetes & Metabolism | DX: E11.9 Type 2 diabetes mellitus without complications (principal); E78.2 Mixed hyperlipidemia | CPT/HCPCS: 99213 ==